=== PATIENT | female | born 1955 | race Asian ===

== ENCOUNTER 2017-09-10 02:08 | Emergency (ER) | payer BC, OTHER ==
--- NOTE | 2017-09-10 02:34 | ER Document Report ---
ED General - General Stated Complaint: POSSIBLE OVERDOSE Time Seen by Provider: 09/10/17 02:13 Notes: Patient is a 62-year-old female presents with some altered mental status. Hospice earlier today she did have a headache. Headache heard 4 hours ago. Patient is a strong psychiatric history. Says that the patient is always hearing voices and is followed by psych. The gave her Tylenol for the headache. Later on the patient started become altered and confused. Paramedics picked her up she admits to the paramedics that she took 6 Seroquel. She denies any focal weakness or numbness. He denies being suicidal but says she is single hearing voices. No recent fevers. No vomiting. No other complaints at this time. TRAVEL OUTSIDE OF THE [place] IN LAST 30 DAYS: No - Related Data Allergies/Adverse Reactions: No Known Allergies Allergy (Verified 09/10/17 03:14) Past Medical History - Social History Smoking Status: Unknown if Ever Smoked Frequency of alcohol use: None Drug Abuse: None Family History: Reviewed & Not Pertinent Review of Systems - Review of Systems Notes: My Normal Review Basic REVIEW OF SYSTEMS: CONSTITUTIONAL : Denies fever, chills, or sweats. Denies recent illness. EENT: Denies eye, ear, throat, or mouth pain or symptoms. Denies nasal or sinus congestion. RESPIRATORY: Denies cough, cold, or chest congestion. Denies shortness of breath, difficulty breathing, or wheezing. GASTROINTESTINAL: Denies abdominal pain. Denies nausea, vomiting, or diarrhea. Denies constipation. Last BM: GENITOURINARY: Denies difficulty urinating, painful urination, burning, frequency, or blood in urine. MUSCULOSKELETAL: Denies neck or back pain or joint pain or swelling. SKIN: Denies rash or skin lesions. NEUROLOGICAL: Some confusion. Denies headache. Denies weakness or paralysis or loss of use of either side. Denies problems with gait or speech. Denies sensory or motor loss. PSYCHIATRIC: Hallucinations. ALL OTHER SYSTEMS REVIEWED AND NEGATIVE. Physical Exam - Vital signs Vitals: Resp Pulse Ox 13 99 09/10/17 02:20 09/10/17 02:20 - Notes Notes: General Appearance: Well nourished, alert, cooperative, no acute distress, no obvious discomfort. Vitals: reviewed, See vital signs table. Head: no swelling or tenderness to the head Eyes: PERRL, EOMI, Conjuctiva clear Mouth: No decreasd moisture Neck: Supple, no neck tenderness Lungs: No wheezing, No rales, No rhonci, No accessory muscle use, good air exchange bilaterally. Heart: Normal rate, Regular rythm, No murmur, no rub Abdomen: Normal BS, soft, No rigidity, No abdominal tenderness, No guarding, no rebound, no abdominal masses, no organomegaly Extremities: strength 5/5 in all extremities, good pulses in all extremities, no swelling or tenderness in the extremities, no edema. Skin: warm, dry, appropriate color, no rash Neuro: Alert speech. Patient is awake and alert. She is able move all extremities without difficulty. Cranial nerves II through XII are intact with exception of her stuttered speech. Course - Re-evaluation Re-evalutation: 09/10/17 04:13 Since speech is now clear. She looks and feels much improved. She still a bit tachycardic which is not surprising in conjunction with her overdose. I did talk about placing an IV and give her IV fluids however the patient does not want IV and the feels that she will be fine just taking in oral fluids. Patient does agree to drink water and is currently drinking water without difficulty. 09/10/17 05:37 Patient appears to be back to her baseline. She is doing well. Her heart rate has normalized. We will watch her to 8 AM. This will give for 12 hours of observation here. She continues to be asymptomatic and looking well then I feel she is safe to be discharged home. I did talk to the about potential psychiatric evaluation here. The seems to have very good satellite dish installer on his 's underlying psychiatric illness. He says she has chronic hallucinations and hearing of voices. He says that she is undergone many different medical therapies as well as inpatient care. He says it does not really seem to have much effect on her hallucinations. He says that he feels that the outpatient psychiatric care they have is appropriate and he would follow-up with the psychiatrist. I feel this is a good plan. At 8 AM this patient continues to be doing well without any symptoms of her Seroquel overdose (such as vomiting, seizures, recurrent tachycardia, slurred speech) she will be discharged home. Dictation of this chart was performed using voice recognition software; therefore, there may be some unintended grammatical errors. - Vital Signs Vital signs: Temp Pulse Resp BP Pulse Ox 13 112/82 96 09/10/17 02:20 09/10/17 04:01 09/10/17 04:01 - Laboratory Result Diagrams: 09/10/17 03:05 09/10/17 03:05 Laboratory results interpreted by me: 09/10/17 09/10/17 09/10/17 03:05 03:12 04:41 BUN 26 H Est GFR ( Amer) 58 L Est GFR (Non-Af Amer) 48 L Glucose 425 H* POC Glucose 355 H 338 H Alkaline Phosphatase 143 H Salicylates < 1.0 L - EKG Interpretation by Me Additional EKG results interpreted by me: 09/10/17 03:03 EKG is reviewed and interpreted by me. EKG shows sinus tachycardia with rate of [address] segment elevation or depression. No ischemic T-wave inversions. FL interval, QRS duration, QTc intervals are within normal range. No old EKG available for comparison. Discharge - Discharge Clinical Impression: Hallucinations, seroquel overdose Additional Instructions: Please follow up with your psychiatrist in 1-2 days for reevaluation. Please return to the ER immediately if you develop worsening hallucinations, severe headache, vomiting, seizure activity, suicidal thoughts, or if you feel that you are worsening. Referrals: JESUS ALMONTE PA-C [Primary Care Provider] - Follow up tomorrow
[2017-09-10 03:14] LABS: ABSOLUTE EOSINOPHILS # (AUTO) 0.1 10^3/uL (0.0-0.6); ABSOLUTE LYMPHOCYTES (AUTO) 1.3 10^3/uL (0.5-4.7); ABSOLUTE MONOCYTES (AUTO) 0.3 10^3/uL (0.1-1.4); BASOPHILS % (AUTO) 0.7 % (0-2); EOSINOPHILS % (AUTO) 1.2 % (0-6); HEMATOCRIT 41.3 % (36.0-47.0); HEMOGLOBIN 13.8 g/dL (12.0-15.5); LYMPHOCYTES % (AUTO) 27.5 % (13-45); MEAN CORPUSCULAR HEMOGLOBIN 31.6 pg (27.0-33.4); MEAN CORPUSCULAR HGB CONC 33.4 g/dL (32.0-36.0); MEAN CORPUSCULAR VOLUME 95 fl (80-97); MONOCYTES % (AUTO) 5.9 % (3-13); PLATELET COUNT 218 10^3/uL (150-450); RED BLOOD COUNT 4.36 10^6/uL (3.72-5.28); RED CELL DISTRIBUTION WIDTH 13.9 % (11.5-14.0); SEGMENTED NEUTROPHILS % (AUTO) 64.7 % (42-78); TOTAL CELLS COUNTED % (AUTO) 100 %; WHITE BLOOD COUNT 4.7 10^3/uL (4.0-10.5)
[2017-09-10 03:42] LABS: ACETAMINOPHEN 28 ug/mL (10-30); ALANINE AMINOTRANSFERASE 34 U/L (9-52); ALBUMIN 4.7 g/dL (3.5-5.0); ALKALINE PHOSPHATASE 143 U/L (38-126); ANION GAP 16 (5-19); ASPARTATE AMINO TRANSFERASE 19 U/L (14-36); BILIRUBIN,DIRECT 0.3 mg/dL (0.0-0.4); BILIRUBIN,TOTAL 0.4 mg/dL (0.2-1.3); BLOOD UREA NITROGEN 26 mg/dL (7-20); CALCIUM 9.8 mg/dL (8.4-10.2); CARBON DIOXIDE 24 mmol/L (22-30); CHLORIDE 99 mmol/L (98-107); POTASSIUM 3.7 mmol/L (3.6-5.0); SODIUM 138.8 mmol/L (137-145); TOTAL PROTEIN 7.5 g/dL (6.3-8.2)
[2017-09-10 03:43] LABS: ALCOHOL < 10 mg/dL (NONE DETECTED); SALICYLATE < 1.0 mg/dL (2.0-20.0)
[2017-09-10] MEDS ORDERED: INSULIN REG, HUMAN 100 UNIT/ML 3 ML VIAL (PYX) SUBCUT ONE (03:48)
[2017-09-10 03:56] LABS: GLUCOSE 425 mg/dL (75-110)
--- NOTE | 2017-09-10 04:26 | RADIOLOGY REPORT (SQ) ---
EXAM DESCRIPTION: CT HEAD WITHOUT CLINICAL HISTORY: 62 years Female, headache COMPARISON: None. TECHNIQUE: No contrast. This exam was performed according to our departmental dose-optimization program, which includes automated exposure control, adjustment of the mA and/or kV according to patient size and/or use of iterative reconstruction technique. FINDINGS: Mild cerebral volume loss. 0.6 cm lacunar infarct of the left claustrum. No hemorrhage. No mass, mass effect, or midline shift. Extra-axial structures appear otherwise grossly intact. IMPRESSION: No acute findings.
--- NOTE | 2017-09-10 09:39 | EKG REPORT ---
SEVERITY:- OTHERWISE NORMAL ECG - SINUS TACHYCARDIA : Confirmed by: Mayi Melendez 10-Sep-2017 09:38:18
[2017-09-10 10:15] VITALS: BP 132/96
== END 2017-09-10 10:05 | disposition home or self-care (01) ==
LOC: ER 02:08
DX: R51 Headache (principal); T43.591A Poisoning by other antipsychotics and neuroleptics, accidental (unintentional), initial encounter; R44.0 Auditory hallucinations; R41.82 Altered mental status, unspecified
CPT/HCPCS: 93005; 99285; 36415; 82962; 80307 ×3; 85025; 80053; 70450; 93010; J1815

== ENCOUNTER → 2019-03-18 | Emergency (ER) | payer OTHER ==
[~2019-03-18] MED LIST: INSULIN GLARGINE,HUM.REC.ANLOG 1,000 UNIT/10 ML VIAL SUBCUT SCH; INSULIN REG, HUMAN 100 UNIT/ML 3 ML VIAL (PYX) IV ONE; INSULIN REG, HUMAN 100 UNIT/ML 3 ML VIAL (PYX) SUBCUT ONE; METOPROLOL TARTRATE 50 MG TABLET PO ONE; METOPROLOL TARTRATE PF/INJ 5 MG/5 ML SDV IV ONE; NORMAL SALINE 1000 ML 1,000 ML IV ONE
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
[2019-03-18 01:20] LABS: ABSOLUTE EOSINOPHILS # (AUTO) 0.1 10^3/uL (0.0-0.6); ABSOLUTE LYMPHOCYTES (AUTO) 1.3 10^3/uL (0.5-4.7); ABSOLUTE MONOCYTES (AUTO) 0.5 10^3/uL (0.1-1.4); ABSOLUTE NEUT (AUTO) 4.6 10^3/uL (1.7-8.2); BASOPHILS % (AUTO) 0.5 % (0-2); EOSINOPHILS % (AUTO) 0.8 % (0-6); HEMATOCRIT 43.1 % (36.0-47.0); HEMOGLOBIN 14.3 g/dL (12.0-15.5); LYMPHOCYTES % (AUTO) 20.1 % (13-45); MEAN CORPUSCULAR HEMOGLOBIN 30.3 pg (27.0-33.4); MEAN CORPUSCULAR HGB CONC 33.2 g/dL (32.0-36.0); MEAN CORPUSCULAR VOLUME 91 fl (80-97); MONOCYTES % (AUTO) 7.4 % (3-13); PLATELET COUNT 234 10^3/uL (150-450); RED BLOOD COUNT 4.73 10^6/uL (3.72-5.28); RED CELL DISTRIBUTION WIDTH 14.5 % (11.5-14.0); SEGMENTED NEUTROPHILS % (AUTO) 71.2 % (42-78); TOTAL CELLS COUNTED % (AUTO) 100 %; WHITE BLOOD COUNT 6.5 10^3/uL (4.0-10.5)
[2019-03-18 01:23] LABS: VENOUS BLOOD BASE EXCESS -0.1 mmol/L; VENOUS BLOOD HCO3 24.2 mmol/L (20-32); VENOUS BLOOD PCO2 38.5 mmHg (35-63); VENOUS BLOOD PH 7.42 (7.30-7.42)
[2019-03-18 01:39] LABS: ACETAMINOPHEN < 10 ug/mL (10-30); ALBUMIN 4.6 g/dL (3.5-5.0); ALCOHOL < 10 mg/dL (NONE DETECTED); ALKALINE PHOSPHATASE 180 U/L (38-126); ANION GAP 15 (5-19); ASPARTATE AMINO TRANSFERASE 29 U/L (14-36); BILIRUBIN,DIRECT 0.4 mg/dL (0.0-0.4); BILIRUBIN,TOTAL 0.8 mg/dL (0.2-1.3); BLOOD UREA NITROGEN 22 mg/dL (7-20); CALCIUM 9.4 mg/dL (8.4-10.2); CARBON DIOXIDE 23 mmol/L (22-30); CHLORIDE 97 mmol/L (98-107); GLUCOSE 345 mg/dL (75-110); POTASSIUM 3.9 mmol/L (3.6-5.0); SALICYLATE < 1.0 mg/dL (2.0-20.0)
[2019-03-18 01:47] LABS: APPEARANCE,URINE CLEAR; BILIRUBIN,URINE NEGATIVE (NEGATIVE); COLOR,URINE COLORLESS; GLUCOSE, URINE >=500 mg/dL (NEGATIVE); KETONES,URINE NEGATIVE (NEGATIVE); LEUKOCYTE ESTERASE,URINE NEGATIVE (NEGATIVE); NITRITE,URINE NEGATIVE (NEGATIVE); PROTEIN,URINE 30 mg/dL (NEGATIVE); URINE SPECIFIC GRAVITY 1.009; UROBILINOGEN,URINE NEGATIVE mg/dL (<2.0)
[2019-03-18 02:04] LABS: URINE AMPHETAMINES SCREEN NEGATIVE; URINE BARBITURATES SCREEN NEGATIVE; URINE BENZODIAZEPINES SCREEN NEGATIVE; URINE COCAINE SCREEN NEGATIVE; URINE MARIJUANA (THC) SCREEN NEGATIVE; URINE METHADONE SCREEN NEGATIVE; URINE PHENCYCLIDINE SCREEN NEGATIVE
--- NOTE | 2019-03-18 04:39 | RADIOLOGY REPORT (SQ) ---
Clinical History : ams , Exam : CT Head without contrast 03/18/2019 12:37 AM CDT Comparisons : CT head without contrast September 10, 2017. Technique : Volumetric CT acquisition was performed through the brain. Images in the axial, coronal, and sagittal planes were presented for interpretation. This exam was performed according to our departmental dose-optimization program, which includes automated exposure control, adjustment of the mA and/or kV according to patient size and/or use of iterative reconstruction technique. Radiation dose : [id number]-954.09 Findings: The soft tissue structures of the face, scalp, and orbits are normal. The globes remain intact. The visualized portions of the paranasal sinuses and mastoid air-cells are clear. The calvarium remains intact . There is no acute intracranial hemorrhage, midline shift, or mass effect. There are mild periventricular and subcortical white matter changes throughout the bilateral cerebral hemispheres. The ventricles are normal in size and the posterior fossa structures are normal in appearance. Limited evaluation of the vasculature demonstrates no gross abnormalities. There is no CT evidence of acute infarction. Impression: 1. No acute intracranial process. 2. Stable small vessel ischemic changes.
--- NOTE | 2019-03-18 09:04 | EKG REPORT ---
SEVERITY:- BORDERLINE ECG - SINUS RHYTHM BORDERLINE PROLONGED QT INTERVAL : Confirmed by: Yocasta Renteria MD 18-Mar-2019 09:03:36
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
[2019-03-18] MEDS: METFORMIN HCL 500 MG TABLET PO SCH ×2 (12:11→17:20)
[2019-03-19] MEDS: METFORMIN HCL 500 MG TABLET PO SCH ×2 (09:53→17:32)
--- NOTE | 2019-03-19 10:04 | ER Document Report ---
Doctor's Note Notes: 03/19/19 10:04 63-year-old female with history of bipolar and schizophrenia who is been noncompliant with medications who is been accepted at [facility] and is awaiting transport. Vital signs stable. Accu-Chek is elevated. Patient was not placed on a diabetic diet despite the metformin being started yesterday. We will provide a liter of fluid with q. one hour Accu-Cheks. 03/19/19 11:34 Blood sugar is elevated. It appears that the patient also takes insulin. Pharmacy is attempting to do a medication reconciliation. Patient has been accepted at [facility] but the patient's blood sugar has increased. We will provide insulin, 7 units, IV of regular insulin, attempt to find the patient's insulin dose regimen, order nightly hourly Accu-Cheks, another liter of fluids, venous blood gas, and chemistry. 03/19/19 11:57 We have called [facility] to confirm that the patient is supposed to take 52 units of subcu Lantus at bedtime. I have added this to the patient's medication regimen. 03/19/19 13:04 Repeat Accu-Chek is 280. Awaiting chemistry. 03/19/19 14:41 Patient's Accu-Chek as recorded. Blood sugars as recorded. Venous blood gas and chemistry as recorded. They are not able to transport the patient to or tomorrow at this time. I have ordered a nighttime subQ insulin dose as given to us from the med reconciliation.
--- NOTE | 2019-03-19 11:13 | PSYCHOLOGICAL NOTE ---
Psych Note - Psych Note Date seen by psych provider: 03/18/19 Time seen by psych provider: 07:45 Psych Note: Reason for Consult: IVC 63-year-old female with history of bipolar, schizophrenia, type 2 diabetes presents via EMS from home with IVC paperwork. Patient identifies that she gets medication from [facility] and has a diagnosis of diabetes. It is noted the patient attempts to identify medications not by name but color and size of the pill. Patient's speech becomes more unintelligible. Patient quickly decompensates into mumbling and can be heard randomly yelling out throughout the day. When asked who the patient is yelling for she reports that her daughter is behind her ("I can hear her") and she is calling her. Clinician notes there is no one in the room with the patient. Clinician spoke with patient's . He reports the patient started having psychological issues in 1998. She has been to [facility] times the last time being in 2007. He reports that she has a diagnosis of bipolar" is highly delusional." He states that she has been on everything but lithium and historically nothing has really worked. He reports that she was on Prolixin once and worked well however had to stop because side effects were so intense. He disclosed the patient stopped taking her Latuda approximately 4 months ago. He denies the patient has a baseline of orientation to self only stating that she can normally answer who she is, where she is, and what is going on; however, she sometimes has difficulty with time only because they do not own a TV or have any set schedule since [facility] so pay little attention to days a week. He continued to disclose that patient's delusions are ongoing however her hallucinations do stop when medicated. Bipolar I disorder with psychotic features per history provided by patient's Impression\\plan: Patient is recommended to continue under IVC. Patient demonstrates auditory hallucinations with disorganized thought processes. Patient has been off medications for approximately 4 months. Patient was accepted to [facility] for transportation tomorrow. Dr. Rodriguez was consulted to care management of this patient; attending physicians in agreement with recommendations disposition.
[2019-03-19 13:33] LABS: ANION GAP 15 (5-19); BLOOD UREA NITROGEN 18 mg/dL (7-20); CALCIUM 8.9 mg/dL (8.4-10.2); CARBON DIOXIDE 20 mmol/L (22-30); CHLORIDE 106 mmol/L (98-107); GLUCOSE 314 mg/dL (75-110); POTASSIUM 3.4 mmol/L (3.6-5.0)
--- NOTE | 2019-03-19 13:51 | PSYCHOLOGICAL NOTE ---
Psych Note - Psych Note Date seen by psych provider: 03/19/19 Psych Note: Reason for Consult: IVC 63-year-old female with history of bipolar, schizophrenia, type 2 diabetes presents via EMS from home with IVC paperwork. Clinician notes [facility] arrived this morning for patient's transport; however, patient's blood sugar was elevated and needed to be medically addressed. Unfortunately, at this time the [facility] [employer] [facility] department is unable to assist with transportation since patient is receiving medical assistance. Patient was expected to be cleared this afternoon but the [facility] department is unable to transport this afternoon. They are able to transport patient tomorrow morning. [facility] was called and it was confirmed they will hold the bed for patient for transport tomorrow. Bipolar I disorder with psychotic features per history provided by patient's Impression\plan: Patient is recommended to continue under IVC. Patient demonstrates auditory hallucinations with disorganized thought processes. Patient has been off medications for approximately 4 months. Patient was accepted to [facility] for transportation tomorrow. Dr. Rodriguez was consulted to care management of this patient; attending physicians in agreement with recommendations disposition.
[2019-03-19 22:19] VITALS: BP 145/74
== END | disposition other institution (70) ==
LOC: ER 00:15
DX: E11.65 Type 2 diabetes mellitus with hyperglycemia (principal); R20.9 Unspecified disturbances of skin sensation; F31.9 Bipolar disorder, unspecified; R41.82 Altered mental status, unspecified; I10 Essential (primary) hypertension; Z91.14 Patient's other noncompliance with medication regimen; S00.81XA Abrasion of other part of head, initial encounter; X58.XXXA Exposure to other specified factors, initial encounter; Z79.899 Other long term (current) drug therapy; Z79.84 Long term (current) use of oral hypoglycemic drugs
CPT/HCPCS: 93005; 36415; 82962; 80307 ×4; 85025; 80053; 81001; 84484; 82803; 70450; 93010; J3490; J1815; J7030; 80048

== ENCOUNTER 2019-04-26 01:54 | Emergency (ER) | payer MEDICARE, OTHER ==
[2019-04-26] MEDS ORDERED: NORMAL SALINE 1000 ML 1,000 ML IV ONE ×2 (02:44→04:46)
[2019-04-26] MEDS ORDERED: LORAZEPAM INJ 2 MG/1 ML VIAL IV ONE (02:44)
--- NOTE | 2019-04-26 02:53 | ER Document Report ---
ED General - General Stated Complaint: RAPID BREATHING,DRY MOUTH,FOOT CRAMPS Time Seen by Provider: 04/26/19 02:34 Primary Care Provider: JESUS ALMONTE PA-C [Primary Care Provider] - Follow up as needed Notes: Patient is a 63-year-old female that comes emergency department for chief complaint of leg cramps and hyperventilating. She comes by EMS. Patient states that her leg started cramping badly, states that shortly after this when he was rubbing her legs patient started hyperventilating and she would not stop doing so. He became concerned and called EMS. Patient denies chest pain, dizziness, vomiting, headache, fever/chills. She states her legs do cramp in her mouth feels dry but otherwise she does not have any current symptoms. Past medical history includes hypertension, type 2 diabetes, anxiety/depression. She denies any cardiovascular history. states that she threw away her blood pressure medications (HCTZ and propanlol with propanalol also being for tachycardia per ), because she thought they were "poison". Patient does have a psychiatric history (bipolar and schizophrenia) and she was recently hospitalized at [facility] per . However he denies any altered mental status or abnormal behavior otherwise. TRAVEL OUTSIDE OF THE [place] IN LAST 30 DAYS: No - Related Data Allergies/Adverse Reactions: No Known Allergies Allergy (Verified 09/10/17 03:14) Past Medical History - General Information source: Patient, Relative - Social History Smoking Status: Never Smoker Drug Abuse: None Lives with: Spouse/Significant other Family History: Reviewed & Not Pertinent - Past Medical History Cardiac Medical History: Reports: Hx Hypertension Endocrine Medical History: Reports: Hx Diabetes Mellitus Type 2 Renal/ Medical History: Denies: Hx Peritoneal Dialysis Psychiatric Medical History: Reports: Hx Bipolar Disorder, Hx Schizophrenia - Immunizations Hx Diphtheria, Pertussis, Tetanus Vaccination: Yes Review of Systems - Review of Systems Constitutional: See HPI EENT: No symptoms reported Cardiovascular: No symptoms reported Respiratory: See HPI Gastrointestinal: No symptoms reported Genitourinary: No symptoms reported Female Genitourinary: No symptoms reported Musculoskeletal: See HPI Skin: No symptoms reported Hematologic/Lymphatic: No symptoms reported Neurological/Psychological: No symptoms reported Physical Exam - Vital signs Vitals: Resp BP 29 H 211/117 H 04/26/19 01:59 04/26/19 01:59 - Notes Notes: GENERAL: Patient is slightly anxious in appearance, very fidgety, however she does not appear to be in pain or distress HEAD: Normocephalic, atraumatic. EYES: Pupils equal, round, and reactive to light. Extraocular movements intact. ENT: Oral mucosa dry, tongue midline. Oropharynx unremarkable. Airway patent. NECK: Full range of motion. Supple. Trachea midline. LUNGS: Clear to auscultation bilaterally, no wheezes, rales, or rhonchi. No respiratory distress. Borderline tachypnea. HEART: Tachycardia, normal rhythm, no murmur ABDOMEN: Soft, non-tender. Non-distended. Bowel sounds present in all 4 quad rants. GENITOURINARY: Deferred EXTREMITIES: Moves all 4 extremities spontaneously. No edema, normal radial and dorsalis pedis pulses bilaterally. No cyanosis. BACK: no cervical, thoracic, lumbar midline tenderness. No saddle anesthesia, normal distal neurovascular exam. Moves all extremities in full range of motion. NEUROLOGICAL: Alert and oriented x3. Normal speech. Cranial nerves II through XII grossly intact. PSYCH: Anxious, asks a lot of questions, however she does make eye contact, it does not appear to be responding to internal stimuli, follows directions without any difficulty SKIN: Warm, dry, normal turgor. No rashes or lesions noted. Course - Re-evaluation Re-evalutation: Patient keeps asking "am I okay", otherwise she is cooperative and generally well-appearing. She does have borderline tachycardia, occasionally during conversation she will have tachypnea, her lungs are clear, her abdomen is soft and benign, her exam is otherwise unremarkable. EKG sinus tachycardia at a rate of 118, no T wave inversions or ST segment changes in consecutive leads. QTC of 345, borderline flattened T waves anteriorly and laterally but this is not noted to be new. Chest x-ray is unremarkable. CBC is unremarkable. Chemistry shows elevated creatinine compared to prior, patient being given IV fluids. Urinalysis indicates infection, culture placed, starting antibiotics. On reevaluation patient is noted to be tachycardic and hypertensive still. She is asking to be given doses of her blood pressure medications, she was given blows propranolol and hydrochlorothiazide, I suspect that she might have unopposed beta-blockade, patient is not complaining of shortness of breath or chest pain, she does not have lower extremity swelling, and no recent travel or surgery, no history of DVT. Current heart rate is 128. 04/26/19 06:00 Patient reevaluated, at bedside heart rate is 106, blood pressure is downtrending (160s systolic now), patient does not have tachypnea, she states that she now feels perfectly fine, she is not cramping in her legs, she does not have a sensation like something is wrong. She asks if she can go home. Based on her presentation, improvement with symptoms, overall evaluation I do have a low suspicion of pulmonary embolism or ACS. I did discuss with Dr. Schneider. Patient will complete her Rocephin for the UTI, she will be taking Amoxil home, requests HCTZ prescription, he states she has her propanolol at home that she can take. She will be provided with this. Discussed follow-up and return precautions. They state understanding and agreement with plan. - Vital Signs Vital signs: Temp Pulse Resp BP Pulse Ox 98.2 F 23 H 161/86 H 96 04/26/19 06:01 04/26/19 06:01 04/26/19 06:01 04/26/19 06:01 - Laboratory Result Diagrams: 04/26/19 03:17 04/26/19 03:17 Laboratory results interpreted by me: 04/26/19 04/26/19 04/26/19 03:01 03:17 03:17 RDW 14.2 H BUN 23 H Creatinine 1.71 H Est GFR ( Amer) 36 L Est GFR (MDRD) Non-Af 30 L Glucose 303 H Alkaline Phosphatase 238 H Urine Glucose (UA) >=500 H Urine Blood SMALL H Urine Nitrite POSITIVE H Ur Leukocyte Esterase LARGE H Salicylates < 1.0 L Acetaminophen < 10 L Discharge - Discharge Clinical Impression: Non compliance w medication regimen, Acute renal insufficiency, Hyperventilating, Essential hypertension Urinary tract infection Qualifiers: Urinary tract infection type: site unspecified Hematuria presence: without hematuria Qualified Code(s): N39.0 - Urinary tract infection, site not specified Condition: Stable Disposition: HOME, SELF-CARE Additional Instructions: Take the Keflex antibiotic as prescribed for your urinary tract infection. Follow close with your provider to have your kidney functioning and blood pressure rechecked. You have been restarted on hydrochlorthiazide for your blood pressure, please take this along with your prescribed propranolol and remaining medications. Return to the emergency department for any concerning symptoms including fever, vomiting, chest pain, shortness of breath, or if something is not right. Prescriptions: Hydrochlorothiazide [Hydrodiuril 25 mg Tablet] 25 mg PO QAM #30 tablet Cephalexin Monohydrate [Keflex 500 mg Capsule] 500 mg PO BID 7 Days #14 capsule Referrals: JESUS ALMONTE PA-C [Primary Care Provider] - Follow up as needed
[2019-04-26 03:29] LABS: ABSOLUTE EOSINOPHILS # (AUTO) 0.1 10^3/uL (0.0-0.6); ABSOLUTE LYMPHOCYTES (AUTO) 1.4 10^3/uL (0.5-4.7); ABSOLUTE MONOCYTES (AUTO) 0.4 10^3/uL (0.1-1.4); ABSOLUTE NEUT (AUTO) 4.9 10^3/uL (1.7-8.2); BASOPHILS % (AUTO) 0.7 % (0-2); EOSINOPHILS % (AUTO) 1.4 % (0-6); HEMATOCRIT 40.9 % (36.0-47.0); HEMOGLOBIN 13.6 g/dL (12.0-15.5); LYMPHOCYTES % (AUTO) 21.2 % (13-45); MEAN CORPUSCULAR HEMOGLOBIN 30.7 pg (27.0-33.4); MEAN CORPUSCULAR HGB CONC 33.3 g/dL (32.0-36.0); MEAN CORPUSCULAR VOLUME 92 fl (80-97); MONOCYTES % (AUTO) 5.6 % (3-13); PLATELET COUNT 269 10^3/uL (150-450); RED BLOOD COUNT 4.42 10^6/uL (3.72-5.28); RED CELL DISTRIBUTION WIDTH 14.2 % (11.5-14.0); SEGMENTED NEUTROPHILS % (AUTO) 71.1 % (42-78); TOTAL CELLS COUNTED % (AUTO) 100 %; WHITE BLOOD COUNT 6.8 10^3/uL (4.0-10.5)
[2019-04-26 03:36] LABS: APPEARANCE,URINE SLIGHTLY-CLOUDY; BILIRUBIN,URINE NEGATIVE (NEGATIVE); COLOR,URINE STRAW; GLUCOSE, URINE >=500 mg/dL (NEGATIVE); KETONES,URINE NEGATIVE (NEGATIVE); LEUKOCYTE ESTERASE,URINE LARGE (NEGATIVE); NITRITE,URINE POSITIVE (NEGATIVE); PROTEIN,URINE NEGATIVE (NEGATIVE); URINE SPECIFIC GRAVITY 1.007; UROBILINOGEN,URINE NEGATIVE mg/dL (<2.0)
[2019-04-26 03:48] LABS: URINE AMPHETAMINES SCREEN NEGATIVE; URINE BARBITURATES SCREEN NEGATIVE; URINE BENZODIAZEPINES SCREEN NEGATIVE; URINE COCAINE SCREEN NEGATIVE; URINE MARIJUANA (THC) SCREEN NEGATIVE; URINE METHADONE SCREEN NEGATIVE; URINE PHENCYCLIDINE SCREEN NEGATIVE
[2019-04-26 03:57] LABS: ALBUMIN 4.3 g/dL (3.5-5.0); ALKALINE PHOSPHATASE 238 U/L (38-126); ANION GAP 13 (5-19); ASPARTATE AMINO TRANSFERASE 35 U/L (14-36); BILIRUBIN,DIRECT 0.1 mg/dL (0.0-0.4); BILIRUBIN,TOTAL 0.3 mg/dL (0.2-1.3); BLOOD UREA NITROGEN 23 mg/dL (7-20); CALCIUM 9.7 mg/dL (8.4-10.2); CARBON DIOXIDE 24 mmol/L (22-30); CHLORIDE 102 mmol/L (98-107); GLUCOSE 303 mg/dL (75-110); POTASSIUM 3.7 mmol/L (3.6-5.0); TOTAL PROTEIN 7.9 g/dL (6.3-8.2)
[2019-04-26 04:01] LABS: ACETAMINOPHEN < 10 ug/mL (10-30); ALCOHOL < 10 mg/dL (NONE DETECTED); SALICYLATE < 1.0 mg/dL (2.0-20.0)
--- NOTE | 2019-04-26 04:05 | RADIOLOGY REPORT (SQ) ---
EXAM DESCRIPTION: XR CHEST 1 VIEW COMPLETED DATE/TME: 04/26/2019 02:45 CLINICAL HISTORY: 63 years, Female, shortness of breath COMPARISON: None. NUMBER OF VIEWS: One TECHNIQUE: AP view of the chest LIMITATIONS: None. FINDINGS: The lungs are clear. The heart is normal in size. There is no pneumothorax or pleural effusion. There is no acute fracture. IMPRESSION: No acute cardiopulmonary abnormality copyright 2010 [employer]- All Rights Reserved
[2019-04-26] MEDS ORDERED: CEFTRIAXONE 1 GM/D5W RTU 1 GM/50 ML RTUPB IV ONE (04:46)
[2019-04-26] MEDS ORDERED: HYDROCHLOROTHIAZIDE 25 MG TABLET PO ONE (04:50)
[2019-04-26] MEDS ORDERED: PROPRANOLOL HCL 10 MG TABLET PO ONE (04:50)
[2019-04-26 06:10] VITALS: BP 161/86
--- NOTE | 2019-04-26 07:25 | EKG REPORT ---
SEVERITY:- ABNORMAL ECG - SINUS TACHYCARDIA LEFT AXIS DEVIATION LOW VOLTAGE IN FRONTAL LEADS CONSIDER POSTERIOR INFARCT NONSPECIFIC T ABNORMALITIES, DIFFUSE LEADS : Confirmed by: Mayi Melendez 26-Apr-2019 07:25:02
== END 2019-04-26 06:48 | disposition home or self-care (01) ==
LOC: ER 01:54
DX: R06.4 Hyperventilation (principal); N28.9 Disorder of kidney and ureter, unspecified; N39.0 Urinary tract infection, site not specified; E11.9 Type 2 diabetes mellitus without complications; R25.2 Cramp and spasm; I10 Essential (primary) hypertension; Z91.14 Patient's other noncompliance with medication regimen
CPT/HCPCS: 93005; 99284; 96361; 96375; 96365; 36415; 80307 ×4; 83735; 85025; 80053; 81001; 84484; 71045; 93010; J2060; A9270; J7030; J0696; J3490

== ENCOUNTER 2019-09-21 10:28 | Emergency (ER) | payer MEDICARE, OTHER ==
[2019-09-21] MEDS ORDERED: NORMAL SALINE 1000 ML 2,000 ML IV ONE (11:11)
--- NOTE | 2019-09-21 11:14 | ER Document Report ---
ED Medical Screen (RME) - General Chief Complaint: High Blood Sugar Stated Complaint: BLOOD SUGAR PROBLEMS Time Seen by Provider: 09/21/19 11:07 Primary Care Provider: JESUS ALMONTE PA-C [Primary Care Provider] - Follow up as needed Notes: Patient is a 64-year-old female who presents to the emergency department with a chief complaint of high blood sugars. Patient has a history of mental health issues, and she is not taking her medications. Patient states, "my is trying to poison me." reports that the patient had high blood sugars at home. She is not taking her insulin as prescribed. Exam: Glucometer high on Accu-Chek machine. Tachycardic. I have greeted and performed a rapid initial assessment of this patient. A comprehensive ED assessment and evaluation of the patient, analysis of test results and completion of medical decision making process will be conducted by an additional ED providers. TRAVEL OUTSIDE OF THE [place] IN LAST 30 DAYS: No - Related Data Allergies/Adverse Reactions: No Known Allergies Allergy (Verified 09/10/17 03:14) Past Medical History - Past Medical History Cardiac Medical History: Reports: Hx Hypertension Endocrine Medical History: Reports: Hx Diabetes Mellitus Type 2 Renal/ Medical History: Denies: Hx Peritoneal Dialysis Psychiatric Medical History: Reports: Hx Bipolar Disorder, Hx Schizophrenia - Immunizations Hx Diphtheria, Pertussis, Tetanus Vaccination: Yes Physical Exam - Vital signs Vitals: Temp Pulse Resp BP Pulse Ox 98.4 F 110 H 18 167/97 H 97 09/21/19 10:46 09/21/19 10:46 09/21/19 10:46 09/21/19 10:46 09/21/19 10:46 Course - Vital Signs Vital signs: Temp Pulse Resp BP Pulse Ox 98.4 F 110 H 18 167/97 H 97 09/21/19 10:46 09/21/19 10:46 09/21/19 10:46 09/21/19 10:46 09/21/19 10:46 Doctor's Discharge - Discharge Referrals: JESUS ALMONTE PA-C [Primary Care Provider] - Follow up as needed
[2019-09-21 12:07] LABS: ABSOLUTE EOSINOPHILS # (AUTO) 0.1 10^3/uL (0.0-0.6); ABSOLUTE LYMPHOCYTES (AUTO) 1.5 10^3/uL (0.5-4.7); ABSOLUTE MONOCYTES (AUTO) 0.4 10^3/uL (0.1-1.4); ABSOLUTE NEUT (AUTO) 4.3 10^3/uL (1.7-8.2); BASOPHILS % (AUTO) 0.6 % (0-2); EOSINOPHILS % (AUTO) 1.6 % (0-6); HEMOGLOBIN 14.3 g/dL (12.0-15.5); LYMPHOCYTES % (AUTO) 23.8 % (13-45); MEAN CORPUSCULAR HEMOGLOBIN 31.8 pg (27.0-33.4); MEAN CORPUSCULAR HGB CONC 33.3 g/dL (32.0-36.0); MEAN CORPUSCULAR VOLUME 95 fl (80-97); MONOCYTES % (AUTO) 6.3 % (3-13); PLATELET COUNT 226 10^3/uL (150-450); RED BLOOD COUNT 4.51 10^6/uL (3.72-5.28); RED CELL DISTRIBUTION WIDTH 13.1 % (11.5-14.0); SEGMENTED NEUTROPHILS % (AUTO) 67.7 % (42-78); TOTAL CELLS COUNTED % (AUTO) 100 %; WHITE BLOOD COUNT 6.3 10^3/uL (4.0-10.5)
[2019-09-21 12:30] LABS: ALBUMIN 4.6 g/dL (3.5-5.0); ALKALINE PHOSPHATASE 261 U/L (38-126); ANION GAP 19 (5-19); ASPARTATE AMINO TRANSFERASE 25 U/L (14-36); BILIRUBIN,DIRECT 0.5 mg/dL (0.0-0.4); BILIRUBIN,TOTAL 0.6 mg/dL (0.2-1.3); BLOOD UREA NITROGEN 25 mg/dL (7-20); CALCIUM 9.9 mg/dL (8.4-10.2); CARBON DIOXIDE 21 mmol/L (22-30); CHLORIDE 94 mmol/L (98-107); POTASSIUM 4.5 mmol/L (3.6-5.0); TOTAL PROTEIN 8.2 g/dL (6.3-8.2)
[2019-09-21 12:39] LABS: GLUCOSE 681 mg/dL (75-110)
[2019-09-21] MEDS ORDERED: INSULIN REG, HUMAN 100 UNIT/ML 3 ML VIAL (PYX) IV ONE (12:48)
[2019-09-21] MEDS ORDERED: INSULIN NPH (ISOPHANE), HUMAN 100 UNIT/ML 3 ML SUBCUT ONE (12:58)
[2019-09-21 13:14] LABS: APPEARANCE,URINE CLEAR; BILIRUBIN,URINE NEGATIVE (NEGATIVE); COLOR,URINE STRAW; GLUCOSE, URINE >=500 mg/dL (NEGATIVE); KETONES,URINE TRACE mg/dL (NEGATIVE); LEUKOCYTE ESTERASE,URINE TRACE (NEGATIVE); NITRITE,URINE NEGATIVE (NEGATIVE); PROTEIN,URINE NEGATIVE (NEGATIVE); URINE SPECIFIC GRAVITY 1.025; UROBILINOGEN,URINE NEGATIVE mg/dL (<2.0)
[2019-09-21 13:15] LABS: ACETAMINOPHEN < 10 ug/mL (10-30); ALCOHOL < 10 mg/dL (NONE DETECTED); SALICYLATE < 1.0 mg/dL (2.0-20.0)
[2019-09-21 13:29] LABS: URINE AMPHETAMINES SCREEN NEGATIVE; URINE BARBITURATES SCREEN NEGATIVE; URINE BENZODIAZEPINES SCREEN NEGATIVE; URINE COCAINE SCREEN NEGATIVE; URINE MARIJUANA (THC) SCREEN NEGATIVE; URINE METHADONE SCREEN NEGATIVE; URINE PHENCYCLIDINE SCREEN NEGATIVE
[2019-09-21 14:12] LABS: VENOUS BLOOD BASE EXCESS -3.4 mmol/L; VENOUS BLOOD PCO2 40.9 mmHg (35-63); VENOUS BLOOD PH 7.35 (7.30-7.42)
--- NOTE | 2019-09-21 14:37 | RADIOLOGY REPORT (SQ) ---
EXAM DESCRIPTION: CT HEAD WITHOUT COMPLETED DATE/TIME: 09/21/2019 2:19 pm REASON FOR STUDY: ams COMPARISON: 03/18/2019. TECHNIQUE: Axial images acquired through the brain without intravenous contrast. Images reviewed wi th bone, brain and subdural windows. Additional sagittal and coronal reconstructions were generated. Images stored on PACS. All CT scanners at this facility use dose modulation, iterative reconstruction, and/or weight based d osing when appropriate to reduce radiation dose to as low as reasonably achievable (ALARA). [facility]: Dose Right [facility]: CareDose [facility]: Dose Right [facility]: Teradose 4D [facility]: My Perfect Gig RADIATION DOSE: CT Rad equipment meets quality standard of care and radiation dose reduction techniq ues were employed. CTDIvol: 53.2 mGy. DLP: 937 mGy-cm. mGy. LIMITATIONS: None. FINDINGS: VENTRICLES: Prominent. CEREBRUM: No masses. No hemorrhage. No midline shift. Areas of low density in the white matter mos t likely due to chronic micro-vascular ischemic change. No evidence for acute infarction. CEREBELLUM: No masses. No hemorrhage. No alteration of density. No evidence for acute infarction. EXTRAAXIAL SPACES: Mild age-related involutional change. No fluid collections. No masses. ORBITS AND GLOBE: No intra- or extraconal masses. Normal contour of globe without masses. CALVARIUM: No fracture. PARANASAL SINUSES: No fluid or mucosal thickening. SOFT TISSUES: No mass or hematoma. OTHER: No other significant finding. IMPRESSION: MILD CHRONIC CHANGES OF ATROPHY AND MICROVASCULAR ISCHEMIA. NO ACUTE PROCESS. EVIDENCE OF ACUTE STROKE: NO. TECHNICAL DOCUMENTATION: JOB ID: [id number] Quality ID # [id number]: Final reports with documentation of one or more dose reduction techniques (e.g., Au tomated exposure control, adjustment of the mA and/or kV according to patient size, use of iterative reconstruction technique) 2010 [employer]- All Rights Reserved Reading location - IP/workstation name: [email or web address]
[2019-09-21] MEDS ORDERED: CLONIDINE 0.1 MG/24 HR PATCH.TDWK TD ONE (15:39)
[2019-09-21] MEDS ORDERED: BUSPIRONE HCL 10 MG TABLET PO SCH (15:40)
--- NOTE | 2019-09-21 16:05 | PSYCHOLOGICAL NOTE ---
Psych Note - Psych Note Date seen by psych provider: 09/21/19 Time seen by psych provider: 15:38 Psych Note: Patient is a 64-year-old female who presents to ED via POV with blood sugar concerns. Patient has a mental health diagnosis of Schizophrenia. Patient's reports patient refuses to take insulin to manage her Type 2 diabetes due to beliefs he is attempting to poison her. Patient was seen by [facility] on 03/19/2020 with similar concern. Patient refuses to take her insulin. Patient states the mediation is "poison." Patient requested clinician "check the computer" and verbalized a belief that if she takes "one in the stomach" she would of a heart attack. Patient also spoke of her friend "Hamida" telling her not to take the insulin. The following collateral information was obtained from patient's , who is adamant that patient will not "be his oneill." reported patient has been psychiatrically hospitalized "repeatedly over 20 years." Patient receives medication management from Dr. Rodriguez who expressed concerns that patient may have dementia like processes in the brain. expressed frustration with patient's refusal to take medications. was provided with psychoeducation regarding the patient's ability to decline medications as her own guardian, and the probability of this situation reoccurring. was encouraged to follow up with a neurologist. Head CT was ordered by attending physician. Results of Head CT contained language osuggestive of neurodegenerative processes in the Cerebrum. Medication recommendations per [facility] contracted psychiatrist Dr. Lino MD are as follows: Discontinue Seroquel Discontinue Latuda Add Clonidine 0.1MG, 24HR patch Add Buspar 5MG, twice a day Add Risperidone 0.25MG, PRN-BID Impression/Plan: Patient is recommended for 24 hour petition for evaluation. Medication recommendations have been provided. Patient has a history of medication compliance as a result of her mental health diagnosis of Schizophrenia. Patient will remain in ED overnight for stabilization. Patient will be reassessed tomorrow for possible medication adjustment. Dr. Rodriguez was consulted on the care and management of this patient; attending physician is in agreement with recommendations and disposition.
[2019-09-21] MEDS: RISPERIDONE 0.25 MG TABLET PO PRN (16:29)
[2019-09-21] MEDS: BUSPIRONE HCL 10 MG TABLET PO SCH (16:29)
--- NOTE | 2019-09-21 16:40 | ER Document Report ---
ED General - General Chief Complaint: High Blood Sugar Stated Complaint: BLOOD SUGAR PROBLEMS Time Seen by Provider: 09/21/19 11:07 Primary Care Provider: JESUS ALMONTE PA-C [Primary Care Provider] - Follow up as needed Mode of Arrival: Ambulatory Information source: Patient TRAVEL OUTSIDE OF THE [place] IN LAST 30 DAYS: No - HPI Notes: Patient presents with secondary to high blood sugars. states that patient has a long history of schizophrenia. She states she will often not take her medicines because she feels that she is being poisoned. Patient has not been taking her insulin over the last several days because she states that her has been trying to poison her with it. Patient otherwise has no significant complaints. There has been no nausea vomiting diarrhea. She denies any pain at this time. Patient symptoms have been mild to moderate. They have been constant. Nothing appears make them better or worse. There is obviously no known radiation of these kind of symptoms. - Related Data Allergies/Adverse Reactions: No Known Allergies Allergy (Verified 09/10/17 03:14) Home Medications: insulin Past Medical History - General Information source: Patient - Social History Smoking Status: Never Smoker Frequency of alcohol use: None Drug Abuse: None Family History: Reviewed & Not Pertinent Patient has suicidal ideation: No Patient has homicidal ideation: No - Past Medical History Cardiac Medical History: Reports: Hx Hypertension Endocrine Medical History: Reports: Hx Diabetes Mellitus Type 2 Renal/ Medical History: Denies: Hx Peritoneal Dialysis Psychiatric Medical History: Reports: Hx Bipolar Disorder, Hx Schizophrenia - Immunizations Hx Diphtheria, Pertussis, Tetanus Vaccination: Yes Review of Systems - Review of Systems Constitutional: denies: Chills, Fever Cardiovascular: denies: Chest pain, Palpitations Respiratory: denies: Cough, Short of breath -: Yes All other systems reviewed and negative Physical Exam - Vital signs Vitals: Temp Pulse Resp BP Pulse Ox 98.4 F 110 H 18 167/97 H 97 09/21/19 10:46 09/21/19 10:46 09/21/19 10:46 09/21/19 10:46 09/21/19 10:46 Interpretation: Hypertensive, Tachycardic - General General appearance: Appears well, Alert - HEENT Head: Normocephalic, Atraumatic Eyes: Normal Pupils: PERRL - Respiratory Respiratory status: No respiratory distress Chest status: Nontender Breath sounds: Normal Chest palpation: Normal - Cardiovascular Rhythm: Regular Heart sounds: Normal auscultation Murmur: No - Abdominal Inspection: Normal Distension: No distension Bowel sounds: Normal Tenderness: Nontender Organomegaly: No organomegaly - Back Back: Normal, Nontender - Extremities General upper extremity: Normal inspection, Nontender, Normal color, Normal ROM, Normal temperature General lower extremity: Normal inspection, Nontender, Normal color, Normal ROM, Normal temperature, Normal weight bearing. No: Ro's sign - Neurological Aaliyah Coma Scale Eye Opening: Spontaneous Aaliyah Coma Scale Verbal: Oriented Schroeder Coma Scale Motor: Obeys Commands Schroeder Coma Scale Total: 15 Speech: Normal Motor strength normal: LUE, RUE, LLE, RLE Sensory: Normal - Psychological Associated symptoms: Flat affect, Flight of ideas - Skin Skin Temperature: Warm Skin Moisture: Dry Skin Color: Normal Course - Re-evaluation Re-evalutation: 09/21/19 16:41 Patient presents with elevated blood sugar due to not taking her insulin. She has been placed on IVC and will be assessed by psychiatry in the morning. Patient is been given insulin here and stay started on her regular medications. She is also been given 2 L of fluid. Diet has been ordered for her. She is now medically stable and is awaiting psychiatric evaluation in the a.m. - Vital Signs Vital signs: Temp Pulse Resp BP Pulse Ox 98.4 F 110 H 22 H 154/98 H 100 09/21/19 10:46 09/21/19 10:46 09/21/19 15:01 09/21/19 15:01 09/21/19 15:01 - Laboratory Result Diagrams: 09/21/19 11:45 09/21/19 11:45 Laboratory results interpreted by me: 09/21/19 09/21/19 09/21/19 11:45 11:45 11:45 Sodium 133.5 L Chloride 94 L Carbon Dioxide 21 L BUN 25 H Creatinine 1.38 H Est GFR ( Amer) 46 L Est GFR (MDRD) Non-Af 38 L Glucose 681 H* POC Glucose Direct Bilirubin 0.5 H Alkaline Phosphatase 261 H Urine Glucose (UA) >=500 H Urine Ketones TRACE H Ur Leukocyte Esterase TRACE H Salicylates < 1.0 L Acetaminophen < 10 L 09/21/19 09/21/19 15:04 16:16 Sodium Chloride Carbon Dioxide BUN Creatinine Est GFR ( Amer) Est GFR (MDRD) Non-Af Glucose POC Glucose 272 H 208 H Direct Bilirubin Alkaline Phosphatase Urine Glucose (UA) Urine Ketones Ur Leukocyte Esterase Salicylates Acetaminophen - Diagnostic Test Radiology reviewed: Image reviewed, Reports reviewed - EKG Interpretation by Me EKG shows normal: Sinus rhythm Rate: Tachycardia - 102 Rhythm: NSR [place]/QRS: [facility]/LA[facility] Discharge - Discharge Clinical Impression: Hyperglycemia, Medical non-compliance Schizophrenia Qualifiers: Schizophrenia type: other Qualified Code(s): F20.89 - Other schizophrenia; F20.8 - Other schizophrenia Condition: Stable Disposition: PSYCH HOSP/UNIT Referrals: JESUS ALMONTE PA-C [Primary Care Provider] - Follow up as needed
--- NOTE | 2019-09-21 17:06 | EKG REPORT ---
SEVERITY:- ABNORMAL ECG - SINUS TACHYCARDIA LEFT ANTERIOR FASCICULAR BLOCK LOW VOLTAGE IN FRONTAL LEADS : Confirmed by: Yocasta Renteria MD 21-Sep-2019 17:06:01
[2019-09-21] MEDS ORDERED: INSULIN NPH (ISOPHANE), HUMAN 100 UNIT/ML 3 ML SUBCUT SCH (23:00)
[2019-09-22] MEDS ORDERED: HYDROCHLOROTHIAZIDE 25 MG TABLET PO SCH (08:00)
[2019-09-22] MEDS: BUSPIRONE HCL 10 MG TABLET PO SCH (11:08)
--- NOTE | 2019-09-22 12:04 | PSYCHOLOGICAL NOTE ---
Psych Note - Psych Note Date seen by psych provider: 09/22/19 Time seen by psych provider: 08:30 Psych Note: Reason for Consult: psychosis Check in conducted with patient: Patient is calm and pleasant. She reports she is ready to go home. She then stated; "I am just sitting her listening to the voices...of the people that are stealing my stuff..my pots and pans, my clothes...." Patient confirms she has been taking her medication that the nurses are providing. She states she has no other concerns at this time. Medication recommendations per [facility] contracted psychiatrist Dr. Lino MD are as follows: Continue Clonidine 0.1MG, 24HR patch Continue Buspar 5MG, twice a day Continue Risperidone 0.25MG, PRN-BID Impression/Plan: Patient is recommended for IVC. Patient is currently experiencing both auditory and visual hallucinations. Medication recommendations have been provided. Patient will be re-evaluated. Dr. Rodriguez was consulted on the care and management of this patient; attending physician is in agreement with recommendations and disposition.
[2019-09-22] MEDS: RISPERIDONE 0.25 MG TABLET PO PRN (12:26)
[2019-09-22] MEDS ORDERED: INSULIN REG, HUMAN 100 UNIT/ML 3 ML VIAL (PYX) SUBCUT ONE (13:23)
--- NOTE | 2019-09-22 13:36 | ER Document Report ---
Doctor's Note Notes: 09/22/19 13:32 S: 64-year-old female in the emergency department on IVC since yesterday. She is here because she has been refusing to take her insulin because she thinks that her is poisoning her. She has a history of schizophrenia. On rounding today that she states that she is doing well. She states she did not really like lunch so she is having her daughter go get her a sandwich. She denies any SI, HI, hallucinations O: Constitutional: Alert and oriented in no acute distress Cardiac: Regular rate and rhythm, no murmurs, gallops, or rubs Pulm: Clear to auscultation bilaterally, no wheezes, rhonchi's, rales Abdomen: Soft, nontender, nondistended, obese psych:Good eye contact, cooperative. Denies SI. Denies HI, hallucinations Skin: Good turgor, warm, and dry A/P: Spoke with behavioral health about the patient. She will go to [facility] today for placement. Noted sugar 329 for which 4 units of insulin was given. Intolerant was signed by Dr. Sahupatient will be transferred.
[2019-09-22] MEDS ORDERED: DIPHENHYDRAMINE HCL 25 MG CAPSULE PO ONE (15:02)
[2019-09-22 15:20] VITALS: BP 143/91
== END 2019-09-22 15:22 ==
LOC: ER 10:28
DX: F20.9 Schizophrenia, unspecified (principal); R41.0 Disorientation, unspecified; E11.65 Type 2 diabetes mellitus with hyperglycemia; Z91.14 Patient's other noncompliance with medication regimen; Z79.4 Long term (current) use of insulin; Z79.899 Other long term (current) drug therapy; I10 Essential (primary) hypertension; R00.0 Tachycardia, unspecified
CPT/HCPCS: 93005; 99285; 96360; 96361; 36415; 82962; 80307 ×4; 85025; 80053; 81001; 82803; 70450; 93010; A9270 ×10; J7030; J1815; J3490

== ENCOUNTER 2020-04-20 11:13 | Emergency (ER) | payer MEDICARE, OTHER ==
[2020-04-20] MEDS ORDERED: NORMAL SALINE 1000 ML 1,000 ML IV ONE (11:40)
--- NOTE | 2020-04-20 11:41 | ER Document Report ---
ED Medical Screen (RME) - General Chief Complaint: Wrist Pain Stated Complaint: LEFT WRIST PAIN,SWELLING Time Seen by Provider: 04/20/20 11:24 Primary Care Provider: MARGIE MUNOZ MD [Primary Care Provider] - Follow up as needed Notes: Patient is a 64-year-old female who presents emergency department with a chief complaint of left wrist pain. Patient states that a week ago she fell out of her bed and hit her wrist and her head. Patient is not taking her blood pressure medication. Patient states, "it is poison." Son is at bedside and states that she has stopped taking her medications. Patient has history of doi ng this in the past. Patient was seen at urgent care was referred to the emergency department for further evaluation. Son states that the patient's blood sugar was also elevated this morning. It read high on the glucometer. Patient then seen 30 units of her insulin. Exam: Patient continues to state that her medications are poison. Tenderness noted to left wrist. Blood pressure 183/138 and heart rate 122. I have greeted and performed a rapid initial assessment of this patient. A comprehensive ED assessment and evaluation of the patient, analysis of test results and completion of medical decision making process will be conducted by an additional ED providers. TRAVEL OUTSIDE OF THE [place] IN LAST 30 DAYS: No - Related Data Allergies/Adverse Reactions: No Known Allergies Allergy (Verified 09/10/17 03:14) Home Medications: amiantindine. clonazapam. Dilitiazem. glipizode. ladtuda. Metformin'. Pioglitaxzone. seroquel. synthroid Past Medical History - Social History Chew tobacco use (# tins/day): No Frequency of alcohol use: None Drug Abuse: None - Past Medical History Cardiac Medical History: Reports: Hx Hypertension Endocrine Medical History: Reports: Hx Diabetes Mellitus Type 2 Renal/ Medical History: Denies: Hx Peritoneal Dialysis Psychiatric Medical History: Reports: Hx Bipolar Disorder, Hx Schizophrenia - Immunizations Hx Diphtheria, Pertussis, Tetanus Vaccination: Yes Physical Exam - Vital signs Vitals: Temp Pulse Resp BP Pulse Ox 98.2 F 122 H 20 183/138 H 98 04/20/20 11:22 04/20/20 11:22 04/20/20 11:22 04/20/20 11:22 04/20/20 11:22 Course - Vital Signs Vital signs: Temp Pulse Resp BP Pulse Ox 98.2 F 122 H 20 176/108 H 98 04/20/20 11:22 04/20/20 11:22 04/20/20 11:22 04/20/20 11:23 04/20/20 11:22 Doctor's Discharge - Discharge Referrals: MARGIE MUNOZ MD [Primary Care Provider] - Follow up as needed
--- NOTE | 2020-04-20 12:25 | RADIOLOGY REPORT (SQ) ---
EXAM DESCRIPTION: WRIST LEFT 3 VIEWS IMAGES COMPLETED DATE/TIME: 04/20/2020 12:10 pm REASON FOR STUDY: fall; wrist pain COMPARISON: None. NUMBER OF VIEWS: Three views. TECHNIQUE: AP, lateral, and oblique radiographic images acquired of the left wrist. LIMITATIONS: None. FINDINGS: MINERALIZATION: Normal. BONES: No acute fracture or dislocation. No worrisome bone lesions. Normal alignment. SOFT TISSUES: No soft tissue swelling. No foreign body. OTHER: No other significant finding. IMPRESSION: NEGATIVE STUDY OF THE LEFT WRIST. NO RADIOGRAPHIC EVIDENCE OF ACUTE INJURY. TECHNICAL DOCUMENTATION: JOB ID: [id number] 2010 [employer]- All Rights Reserved Reading location - IP/workstation name: [email or web address]
[2020-04-20 12:28] LABS: APPEARANCE,URINE CLEAR; BILIRUBIN,URINE NEGATIVE (NEGATIVE); COLOR,URINE STRAW; GLUCOSE, URINE >=500 mg/dL (NEGATIVE); KETONES,URINE NEGATIVE (NEGATIVE); LEUKOCYTE ESTERASE,URINE TRACE (NEGATIVE); NITRITE,URINE NEGATIVE (NEGATIVE); PROTEIN,URINE NEGATIVE (NEGATIVE); URINE SPECIFIC GRAVITY 1.024; UROBILINOGEN,URINE NEGATIVE mg/dL (<2.0)
[2020-04-20 12:37] LABS: URINE AMPHETAMINES SCREEN NEGATIVE; URINE BARBITURATES SCREEN NEGATIVE; URINE BENZODIAZEPINES SCREEN NEGATIVE; URINE COCAINE SCREEN NEGATIVE; URINE MARIJUANA (THC) SCREEN NEGATIVE; URINE METHADONE SCREEN NEGATIVE; URINE PHENCYCLIDINE SCREEN NEGATIVE
--- NOTE | 2020-04-20 12:40 | RADIOLOGY REPORT (SQ) ---
EXAM DESCRIPTION: CT HEAD WITHOUT IMAGES COMPLETED DATE/TIME: 04/20/2020 12:22 pm REASON FOR STUDY: fall; hit head COMPARISON: 09/21/2019 TECHNIQUE: Axial images acquired through the brain without intravenous contrast. Images reviewed wi th bone, brain and subdural windows. Additional sagittal and coronal reconstructions were generated. Images stored on PACS. All CT scanners at this facility use dose modulation, iterative reconstruction, and/or weight based d osing when appropriate to reduce radiation dose to as low as reasonably achievable (ALARA). [facility]: Dose Right [facility]: CareDose [facility]: Dose Right [facility]: Teradose 4D [facility]: [employer] RADIATION DOSE: CT Rad equipment meets quality standard of care and radiation dose reduction techniq ues were employed. CTDIvol: 53.2 mGy. DLP: 1017 mGy-cm. mGy. LIMITATIONS: None. FINDINGS: VENTRICLES: Normal size and contour. CEREBRUM: Cortical atrophy. No masses. No hemorrhage. No midline shift. No evidence for acute inf arction. Areas of low density in the white matter most likely chronic small vessel ischemic changes. CEREBELLUM: No masses. No hemorrhage. No alteration of density. No evidence for acute infarction. EXTRAAXIAL SPACES: No fluid collections. No masses. ORBITS AND GLOBE: No intra- or extraconal masses. Normal contour of globe without masses. CALVARIUM: No fracture. PARANASAL SINUSES: No fluid or mucosal thickening. SOFT TISSUES: No mass or hematoma. OTHER: No other significant finding. IMPRESSION: Mild involutional changes with mild chronic microvascular ischemia. No acute intracrani al imaging findings. EVIDENCE OF ACUTE STROKE: NO. COMMENT: Quality ID # [id number]: Final reports with documentation of one or more dose reduction techniques (e.g., Automated exposure control, adjustment of the mA and/or kV according to patient size, use of iterative reconstruction technique) TECHNICAL DOCUMENTATION: JOB ID: [id number] 2010 [employer]- All Rights Reserved Reading location - IP/workstation name: [email or web address]
[2020-04-20 13:10] LABS: VENOUS BLOOD BASE EXCESS -0.9 mmol/L; VENOUS BLOOD HCO3 24.8 mmol/L (20-32); VENOUS BLOOD PCO2 44.6 mmHg (35-63); VENOUS BLOOD PH 7.36 (7.30-7.42)
[2020-04-20 13:11] LABS: ABSOLUTE EOSINOPHILS # (AUTO) 0.1 10^3/uL (0.0-0.6); ABSOLUTE LYMPHOCYTES (AUTO) 1.6 10^3/uL (0.5-4.7); ABSOLUTE MONOCYTES (AUTO) 0.4 10^3/uL (0.1-1.4); ABSOLUTE NEUT (AUTO) 4.4 10^3/uL (1.7-8.2); BASOPHILS % (AUTO) 0.4 % (0-2); EOSINOPHILS % (AUTO) 1.1 % (0-6); HEMOGLOBIN 14.8 g/dL (12.0-15.5); LYMPHOCYTES % (AUTO) 24.7 % (13-45); MEAN CORPUSCULAR HEMOGLOBIN 31.3 pg (27.0-33.4); MEAN CORPUSCULAR HGB CONC 33.6 g/dL (32.0-36.0); MEAN CORPUSCULAR VOLUME 93 fl (80-97); MONOCYTES % (AUTO) 5.6 % (3-13); PLATELET COUNT 301 10^3/uL (150-450); RED BLOOD COUNT 4.72 10^6/uL (3.72-5.28); RED CELL DISTRIBUTION WIDTH 13.5 % (11.5-14.0); SEGMENTED NEUTROPHILS % (AUTO) 68.2 % (42-78); TOTAL CELLS COUNTED % (AUTO) 100 %; WHITE BLOOD COUNT 6.4 10^3/uL (4.0-10.5)
[2020-04-20 13:28] LABS: ALBUMIN 4.4 g/dL (3.5-5.0); ALKALINE PHOSPHATASE 206 U/L (38-126); ANION GAP 18 (5-19); ASPARTATE AMINO TRANSFERASE 31 U/L (14-36); BILIRUBIN,DIRECT 0.5 mg/dL (0.0-0.4); BILIRUBIN,TOTAL 0.5 mg/dL (0.2-1.3); BLOOD UREA NITROGEN 20 mg/dL (7-20); CALCIUM 10.5 mg/dL (8.4-10.2); CARBON DIOXIDE 24 mmol/L (22-30); CHLORIDE 97 mmol/L (98-107); TOTAL PROTEIN 8.2 g/dL (6.3-8.2)
[2020-04-20 13:29] LABS: ACETAMINOPHEN < 10 ug/mL (10-30); ALCOHOL < 10 mg/dL (NONE DETECTED); SALICYLATE < 1.0 mg/dL (2.0-20.0)
[2020-04-20 13:36] LABS: GLUCOSE 475 mg/dL (75-110)
[2020-04-20] MEDS ORDERED: METOPROLOL TARTRATE PF/INJ 5 MG/5 ML SDV IV ONE (15:08)
--- NOTE | 2020-04-20 15:49 | PSYCHOLOGICAL NOTE ---
Psych Note - Psych Note Date seen by psych provider: 04/20/20 Time seen by psych provider: 13:30 Psych Note: Reason for Consult:psychosis Patient's son is at bedside per patient's request Patient has not been taking her medications because she thinks they are poisonous. She reports her bnaink-zk-gpf has told her this. She states she hers her [id number] everyday. Patient's mother- in -law lives in another state and she has had no contact with the patient for about 20 years. Patient states she has been taking her seroquel and amiantindine but that her Latuda is "bad for me." It is unclear what other medication she is or is not taking. Patient's son reports the patient has not been taking her medications "for awhile." Impression/Plan: Patient is recommended for 24 hour petition for evaluation. Patient is reporting hearing voices that are telling her her medication is poison. She has stopped taking her medications which has resulted in needing emergency medical treatment. Patient will be reevaluated. Dr. Rodriguez was consulted on the care and management of this patient; attending physician is in agreement with recommendations and disposition.
--- NOTE | 2020-04-20 15:52 | ER Document Report ---
Entered by ALLEN WOOTEN SCRIBE 04/20/20 1411 Acting as scribe for:MANDY PARNELL MD ED General - General Chief Complaint: Wrist Pain Stated Complaint: LEFT WRIST PAIN,SWELLING Time Seen by Provider: 04/20/20 11:24 Primary Care Provider: MARGIE MUNZO MD [Primary Care Provider] - Follow up as needed Mode of Arrival: Ambulatory Information source: Patient, Relative - Son Notes: This 64 year old female patient with a history significant for hypertension, diabetes mellitus, schizophrenia, and bipolar disorder presents to the ED today with complaints of left wrist pain and swelling status/post fall that occurred x1 week ago. Patient states that she fell onto her left wrist and hit her head. Son at bedside states that the patient has been refusing to take her medications because she thinks it is "poison." Patient does have a history of medical noncompliance. Son did bring a medication list that was last updated in 2013; from the pharmacy records that I can access, there are some medications that have been discontinued and added since 2013; however, the son does not know what they are. He mentions that the patient has only been taking the "short-term" insulin. TRAVEL OUTSIDE OF THE [place] IN LAST 30 DAYS: No - Related Data Allergies/Adverse Reactions: No Known Allergies Allergy (Verified 09/10/17 03:14) Home Medications: amiantindine. clonazapam. Dilitiazem. glipizode. ladtuda. Metformin'. Pioglitaxzone. seroquel. synthroid Past Medical History - General Information source: Relative - Son, [facility] Records - Social History Smoking Status: Never Smoker Cigarette use (# per day): No Chew tobacco use (# tins/day): No Smoking Education Provided: No Frequency of alcohol use: None Drug Abuse: None Family History: Reviewed & Not Pertinent - Past Medical History Cardiac Medical History: Reports: Hx Hypertension Endocrine Medical History: Reports: Hx Diabetes Mellitus Type 2 Psychiatric Medical History: Reports: Hx Bipolar Disorder, Hx Schizophrenia - Immunizations Hx Diphtheria, Pertussis, Tetanus Vaccination: Yes Review of Systems - Review of Systems Constitutional: No symptoms reported EENT: No symptoms reported Cardiovascular: No symptoms reported Respiratory: No symptoms reported Gastrointestinal: No symptoms reported Genitourinary: No symptoms reported Female Genitourinary: No symptoms reported Musculoskeletal: See HPI Skin: No symptoms reported Hematologic/Lymphatic: No symptoms reported Neurological/Psychological: See HPI -: Yes All other systems reviewed and negative Physical Exam - Vital signs Vitals: Temp Pulse Resp BP Pulse Ox 98.2 F 122 H 20 183/138 H 98 04/20/20 11:22 04/20/20 11:22 04/20/20 11:22 04/20/20 11:22 04/20/20 11:22 - General General appearance: Alert - Speaks in a high-pitched sqeaky voice In distress: None - HEENT Head: Normocephalic, Atraumatic Eyes: Normal Pupils: PERRL - Respiratory Respiratory status: No respiratory distress Chest status: Nontender Breath sounds: Normal Chest palpation: Normal - Cardiovascular Rhythm: Regular, Tachycardia Heart sounds: Normal auscultation Murmur: No Friction rub: No Gallop: None auscultated - Abdominal Inspection: Obese Distension: No distension Bowel sounds: Normal Tenderness: Nontender - Abdomen soft Organomegaly: No organomegaly - Back Back: Normal, Nontender - Extremities General lower extremity: Normal inspection. No: Edema Wrist: Other - Left wrist is swollen and tender to palpate secondary to ROM. No: Ecchymosis - Neurological Neuro grossly intact: Yes Orientation: AAOx4 Aaliyah Coma Scale Eye Opening: Spontaneous [place] Coma Scale Verbal: Oriented [place] Coma Scale Motor: Obeys Commands [place] Coma Scale Total: 15 - Psychological Associated symptoms: Other - She states that the medications are poison, but does not elaborate any further - Skin Skin Temperature: Warm Skin Moisture: Dry Skin Color: Normal Course - Re-evaluation Re-evalutation: 04/20/20 17:59 The patient's Accu-Chek went from 547 down to 198 and 6 hours after only receiving IV fluid. She obviously took a large dose of insulin prior to coming to the emergency room. The patient's hemoglobin A1c is >14.0 The patient was given Lopressor 5 mg IV. Her heart rate went from 122 down to 82, her blood pressure went from 181/1 138-169/91. - Vital Signs Vital signs: Temp Pulse Resp BP Pulse Ox 98.2 F 122 H 14 176/96 H 98 04/20/20 11:22 04/20/20 11:22 04/20/20 19:01 04/20/20 19:01 04/20/20 19:01 - Laboratory Result Diagrams: 04/20/20 12:35 04/20/20 12:35 Laboratory results interpreted by me: 04/20/20 04/20/20 04/20/20 11:41 12:00 12:35 Chloride 97 L Est GFR (MDRD) Non-Af 54 L Glucose 475 H* POC Glucose 547 H* Hemoglobin A1c % Calcium 10.5 H Direct Bilirubin 0.5 H Alkaline Phosphatase 206 H Free T3 pg/mL Urine Glucose (UA) >=500 H Ur Leukocyte Esterase TRACE H Salicylates < 1.0 L Acetaminophen < 10 L 04/20/20 04/20/20 04/20/20 12:35 12:35 16:08 Chloride Est GFR (MDRD) Non-Af Glucose POC Glucose 198 H Hemoglobin A1c % > 14.0 H Calcium Direct Bilirubin Alkaline Phosphatase Free T3 pg/mL 2.50 L Urine Glucose (UA) Ur Leukocyte Esterase Salicylates Acetaminophen Critical Care Note - Critical Care Note Total time excluding time spent on procedures (mins): 40 Comments: At least 40 minutes spent evaluating the patient, trying to get history from the bipolar manic patient, her not so well informed son, and reviewing the medical records and medication list brought by the son. There was a list printed by her primary care today that showed the start date of medications in September 2013 and nothing updating the medication to reflect what medication she is really on. Quite a bit of time was spent determining these discrepancies looking through online pharmacy records and trying to talk with the son who ended up saying he needed to talk to his father who knew more about the case. Time spent discussing the case with the behavioral health team, and having the involuntary commitment done. Patient was extremely hyperglycemic coming in, based on the very vague history about insulin usage, I elected to hydrate and not give insulin which was a good decision as the blood sugar dropped considerably with that intervention. Also had to spend time determining what medications she most likely would need during her overnight stay in the emergency room and the IVC capacity. Discharge - Discharge Clinical Impression: Patient refuses to take medication, Poorly controlled diabetes mellitus, Tachycardia, High blood pressure associated with diabetes Hyperglycemia due to type 2 diabetes mellitus Qualifiers: Diabetes mellitus salvage determiner insulin use: with salvage determiner use Qualified Code(s): E11.65 - Type 2 diabetes mellitus with hyperglycemia Sprain of left wrist Qualifiers: Encounter type: initial encounter Qualified Code(s): S63.502A - Unspecified sprain of left wrist, initial encounter Bipolar disorder Qualifiers: Active/Remission status: currently active Current bipolar episode type: hypomanic Qualified Code(s): F31.0 - Bipolar disorder, current episode hypomanic Condition: Good Disposition: PSYCH HOSP/UNIT Referrals: MARGIE MUNOZ MD [Primary Care Provider] - Follow up as needed I personally performed the services described in the documentation, reviewed and edited the documentation which was dictated to the scribe in my presence, and it accurately records my words and actions.
[2020-04-20 16:55] LABS: FREE T3 2.5 pg/mL (2.77-5.27); FREE T4 (FREE THYROXINE) 0.89 ng/dL (0.78-2.19)
[2020-04-20] MEDS: METFORMIN HCL 500 MG TABLET PO SCH (21:19)
[2020-04-20] MEDS: LOSARTAN POTASSIUM 50 MG TABLET PO SCH (21:19)
[2020-04-20] MEDS: QUETIAPINE FUMARATE 100 MG TABLET PO SCH (21:19)
[2020-04-20] MEDS: LURASIDONE HCL 40 MG TABLET PO SCH (21:20)
--- NOTE | 2020-04-20 22:04 | EKG REPORT ---
SEVERITY:- ABNORMAL ECG - SINUS TACHYCARDIA ABERRANT COMPLEX LEFT ANTERIOR FASCICULAR BLOCK : Confirmed by: Yocasta Renteria MD 20-Apr-2020 22:03:18
[2020-04-20] MEDS ORDERED: INSULIN REG, HUMAN 100 UNIT/ML 3 ML VIAL (PYX) SUBCUT ONE (22:15)
[2020-04-20] MEDS ORDERED: DEXTROSE 50%-WATER SYRINGE 25 GM/50 ML DOSE IV PRN (22:30)
[2020-04-20] MEDS ORDERED: DEXTROSE 50%-WATER SYRINGE 12.5 GM/25 ML DOSE IV PRN (22:30)
[2020-04-20] MEDS ORDERED: DEXTROSE 40% GEL 15 GM TUBE PO PRN (22:30)
[2020-04-20] MEDS ORDERED: GLUCAGON,HUMAN RECOMB 1 MG INJ IM PRN (22:30)
[2020-04-20] MEDS ORDERED: DEXTROSE 40% GEL 15 GM TUBE X 2 PO PRN (22:30)
[2020-04-20] MEDS: ALLOPURINOL 100 MG TABLET PO SCH (23:00)
[2020-04-20] MEDS: AMANTADINE HCL 100 MG CAPSULE PO SCH (23:01)
[2020-04-21] MEDS ORDERED: NORMAL SALINE 1000 ML 1,000 ML IV ONE (06:46)
[2020-04-21] MEDS: INSULIN REG, HUMAN 100 UNIT/ML 3 ML VIAL (PYX) SUBCUT SCH ×2 (08:10→12:03)
[2020-04-21] MEDS: QUETIAPINE FUMARATE 100 MG TABLET PO SCH (11:01)
[2020-04-21] MEDS: AMANTADINE HCL 100 MG CAPSULE PO SCH ×2 (11:01→13:50)
[2020-04-21] MEDS: LOSARTAN POTASSIUM 50 MG TABLET PO SCH (11:02)
[2020-04-21] MEDS: LURASIDONE HCL 40 MG TABLET PO SCH (11:02)
[2020-04-21] MEDS: ALLOPURINOL 100 MG TABLET PO SCH (11:02)
[2020-04-21] MEDS: METFORMIN HCL 500 MG TABLET PO SCH (11:57)
[2020-04-21 14:17] VITALS: BP 150/87
--- NOTE | 2020-04-21 15:00 | ER Document Report ---
Doctor's Note Notes: 04/21/20 14:58 Patient's vital signs, previous labs, diagnostic imaging reviewed. Reviewed mental health notes, nurses notes and previous vital signs. Patient is in no distress at this time denies any SI or HI. Wants to go home. Denies any complaints. General: Awake, alert Heart: RRR, no murmurs, rubs, gallops Lungs: CTABL Extremities: splint on left wrist A&P: Patient has been cleared by mental health. I discussed with patient that she will need to have close follow up with her primary care provider in regards to her blood sugars and her blood pressure. She also need to follow-up with them in regards to her wrist sprain. She will likely need orthopedic follow-up. Patient agrees with this plan.
--- NOTE | 2020-04-21 21:27 | PSYCHOLOGICAL NOTE ---
Psych Note - Psych Note Date seen by psych provider: 04/21/20 Time seen by psych provider: 11:39 - Evaluation with patient from [id number]. Discussion with son about plan of care at 1320. Discussion with spouse about plan of care at 1322. Linkage to [facility] at 1343. Psych Note: Patient is a 64 year old female in the Emergency Department on a 24 Hour Petition for Evaluation due to paranoia and persecutory delusions that her medication is poison so noncompliant with medication and has a history of Bipolar Disorder. He blood glucose levels were almost 500 which can cause confusion and impaired cognition. Home medication were restarted last evening by medical provider. Patient was eating lunch. She stated she was in the Emergency Department due to her wrist hurting. She reported she takes her medications at home and denied mental health history. She reported "I am feeling fine." She stated she resides with her and son. Patient was calm and pleasant. She made fair eye contact. She answered all questions appropriately when addressed. She did not talk with anybody in the room or report hearing the voice of her [id number]-rb-trv. She denied suicidal and homicidal ideation. Head CT from this visit has neurodegenerative process language. At 1320 called patient's son Willie ([phone]) and discussed plan of care. At 1322 called patient's spouse Javed ([phone]) and discussed plan of care. Also provided with the outpatient mental health resource sheet in person in the lobby. Explained how [facility] services emailed him (he provided email address during phone conversation: [email or web address]) paperwork they must complete and send back, then they will get a phone call arranging appointments. Also highlighted both mobile crisis numbers. Explained patient would benefit from multi system (primary care, mental health, neurology) follow up. He stated patient has an appointment with primary care next week. Suggested he ensure to bring up the diabetes and how medical provider noted patient would likely need a sliding scale injection. also noted patient's insurances are Medicare and for Life. He noted the [employer] is old and outdated. At 1343 called [facility] Services, spoke to Hernandez (female), and made linkage for outpatient mental health services (medication management and therapy). Clinical Presentation: Psychosis- paranoia and persecutory delusions Noncompliance with medication Elevated Glucose Levels History of Bipolar Disorder Concerns for neurodegnerative process language on Head CT Impression/Plan: Patient is cleared from acute psychiatric services. Recommendation to [facility] 24 Hour Petition for Evaluation. Patient took medications when administered last night and this morning. She did not talk with anybody not in the room and did not mention hearing her ggpdwf-gc-lio's voice. She denied suicidal and homicidal ideation. She was calm and pleasant. Included both son and in plan of care. Went over plan of care more with who provided transportation home. He was given the outpatient mental health resource sheet which highlighted both mobile crisis numbers, documented [facility] emailing paperwork to begin services, and noted multi system primary care, mental health, neurology) follow up. noted primary care appointment next week and encouraged to ensure talking about diabetes and request neurology referral. Consulted with Dr. Rodriguez regarding the management and carer of patient. ED Physician in agreement with recommendations.
== END 2020-04-21 15:00 | disposition home or self-care (01) ==
LOC: ER 11:13
DX: S63.502A Unspecified sprain of left wrist, initial encounter (principal); W06.XXXA Fall from bed, initial encounter; W22.03XA Walked into furniture, initial encounter; F31.0 Bipolar disorder, current episode hypomanic; F29 Unspecified psychosis not due to a substance or known physiological condition; E11.65 Type 2 diabetes mellitus with hyperglycemia; E11.69 Type 2 diabetes mellitus with other specified complication; I15.2 Hypertension secondary to endocrine disorders; T46.1X6A Underdosing of calcium-channel blockers, initial encounter; Z91.128 Patient's intentional underdosing of medication regimen for other reason; Z91.14 Patient's other noncompliance with medication regimen; R00.0 Tachycardia, unspecified; Z79.4 Long term (current) use of insulin
CPT/HCPCS: 93005; 99291; 96361 ×2; 96374; 36415; 84439; 82962; 80307 ×4; 85025; 80053; 81001; 84481; 83036; 82803; 73110; 70450; 93010; A9270 ×14; J3490; J7030 ×2; J1815

== ENCOUNTER 2020-06-27 03:24 | Observation (INO) | payer MEDICARE, OTHER ==
--- NOTE | 2020-06-27 03:59 | ER Document Report ---
ED General - General Chief Complaint: Low Blood Sugar Stated Complaint: LOW BLOOD SUGAR Time Seen by Provider: 06/27/20 03:50 Primary Care Provider: MARGIE MUNOZ MD [Primary Care Provider] - Follow up as needed Notes: Patient is a 65-year-old female with a history of insulin-dependent type 2 diabetes and schizophrenia that comes to the emergency department for chief complaint of confusion. EMS states when they arrived patient was disoriented, diaphoretic, blood pressure in the 80s systolic, glucose in the 60s. Patient was given 500 cc bolus and 12.5 g of dextrose IV, after this vital signs normalized, confusion resolved. notes that about 9 PM patient took 40 units of NovoLog after her blood glucose had read "HI". Patient is completely oriented, states she is hungry, denies any current complaints, states she felt good throughout the day, EMS states stated she had no sick symptoms or abnormal behaviors during the day. Patient is on Metformin and insulin, Latuda, Seroquel, losartan, and gout medications. TRAVEL OUTSIDE OF THE [place] IN LAST 30 DAYS: No - Related Data Allergies/Adverse Reactions: No Known Allergies Allergy (Verified 09/10/17 03:14) Past Medical History - General Information source: Patient - Social History Smoking Status: Never Smoker Frequency of alcohol use: None Drug Abuse: None Lives with: Family Family History: Reviewed & Not Pertinent - Past Medical History Cardiac Medical History: Reports: Hx Hypertension Endocrine Medical History: Reports: Hx Diabetes Mellitus Type 2 Renal/ Medical History: Denies: Hx Peritoneal Dialysis Psychiatric Medical History: Reports: Hx Bipolar Disorder, Hx Schizophrenia - Immunizations Hx Diphtheria, Pertussis, Tetanus Vaccination: Yes Review of Systems - Review of Systems Constitutional: See HPI EENT: No symptoms reported Cardiovascular: See HPI Respiratory: No symptoms reported Gastrointestinal: No symptoms reported Genitourinary: No symptoms reported Female Genitourinary: No symptoms reported Musculoskeletal: No symptoms reported Skin: See HPI Hematologic/Lymphatic: No symptoms reported Neurological/Psychological: See HPI Physical Exam - Vital signs Vitals: BP Pulse Ox 110/68 100 06/27/20 03:53 06/27/20 03:53 - Notes Notes: GENERAL: Alert, interacts well. No acute distress. HEAD: Normocephalic, atraumatic. EYES: Pupils equal, round, and reactive to light. Extraocular movements intact. ENT: Oral mucosa moist, tongue midline. Oropharynx unremarkable. Airway patent. NECK: Full range of motion. Supple. Trachea midline. No lymphadenopathy. LUNGS: Clear to auscultation bilaterally, no wheezes, rales, or rhonchi. No respiratory distress. Non-tender chest wall. HEART: Regular rate and rhythm. No murmur ABDOMEN: Soft, non-tender. Non-distended. Bowel sounds present in all 4 quadrants. GENITOURINARY: Deferred EXTREMITIES: Moves all 4 extremities spontaneously. No edema, normal radial and dorsalis pedis pulses bilaterally. No cyanosis. BACK: no cervical, thoracic, lumbar midline tenderness. No saddle anesthesia, normal distal neurovascular exam. Moves all extremities in full range of motion. NEUROLOGICAL: Alert and oriented x3. Normal speech. Cranial nerves II through XII grossly intact. Strength 5/5 in all extremities. PSYCH: Slightly flat affect but cooperative, alert, and still conversational SKIN: Warm, dry, normal turgor. No rashes or lesions noted. Course - Re-evaluation Re-evalutation: Patient is alert, back to baseline, no complaints. Glucose is in the 80s on recheck. Patient was fed. Vital signs unremarkable other than hypothermia which is expected given her hypoglycemia. Physical exam is unremarkable. Patient ate a sandwich. CBC unremarkable, chemistry shows mild hypokalemia although this is expected given shift from insulin, EKG does not show concerning acute changes, I suspect this is transient. Troponin unremarkable. Chest x-ray unremarkable. 06/27/20 05:58 Glucose trending upwards, however patient suddenly became significantly hypotensive. This was confirmed with manual blood pressure cuff, confirmed to be in the 60s. Patient remains arousable but is very drowsy. We have to bilateral 22-gauges in the wrists, I placed a 20-gauge in the right AC and obtained venous blood gas, lactic acid, blood cultures. Giving IV fluid bolus. Performing straight catheterization. Uncertain of the cause of patient's repeat hypotension. Patient is still hypothermic as well. came to bedside and I spoke to him, he states that he monitors his closely with her insulin doses although he states it is possible that around 11 PM she went into her room and took additional medication. He states the only other thing she might of taken would be either Seroquel or Latuda, however he states he does not feel this is likely. He states he has no suspicion of intentional overdose or suicidality. Patient denies SI or HI. He states she does not have a history of frequent accidental overdose and he monitors what the medication she takes very closely. Patient discussed with Dr. Murphy. Discussed with patient and , will discuss with hospitalist for admission for hypoglycemia, hypotension episodes, hypothermia. After IV fluid bolus hypotension resolved, on repeat glucose is not downtrending. 06/27/20 07:53 Discussed with Kayla Medley NP, patient accepted to telemetry observation under Dr. Ross. - Vital Signs Vital signs: Temp Pulse Resp BP Pulse Ox 94.2 F L 14 112/65 100 06/27/20 06:40 06/27/20 07:10 06/27/20 07:10 06/27/20 07:10 - Laboratory Result Diagrams: 06/27/20 04:19 06/27/20 04:19 Laboratory results interpreted by me: 06/27/20 06/27/20 06/27/20 04:19 04:19 04:19 RDW 14.7 H Potassium 3.1 L BUN 26 H Creatinine 1.35 H Est GFR ( Amer) 47 L Est GFR (MDRD) Non-Af 39 L POC Glucose Lactic Acid Alkaline Phosphatase 131 H Urine Glucose (UA) Salicylates < 1.0 L Acetaminophen < 10 L 06/27/20 06/27/20 06/27/20 05:16 05:45 05:54 RDW Potassium BUN Creatinine Est GFR ( Amer) Est GFR (MDRD) Non-Af POC Glucose 144 H 203 H Lactic Acid 2.7 H Alkaline Phosphatase Urine Glucose (UA) Salicylates Acetaminophen 06/27/20 06/27/20 06:13 06:55 RDW Potassium BUN Creatinine Est GFR ( Amer) Est GFR (MDRD) Non-Af POC Glucose 210 H Lactic Acid Alkaline Phosphatase Urine Glucose (UA) >=500 H Salicylates Acetaminophen - EKG Interpretation by Me Additional EKG results interpreted by me: EKG shows sinus rhythm at a rate of 92, QTc 485, normal axis, borderline flattened T waves throughout, no T wave inversions or ST segment changes in consecutive leads. Discharge - Discharge Clinical Impression: Hypoglycemia Hypotension Qualifiers: Hypotension type: unspecified hypotension type Qualified Code(s): I95.9 - Hypotension, unspecified Hypothermia Qualifiers: Encounter type: initial encounter Qualified Code(s): T68.XXXA - Hypothermia, initial encounter Condition: Stable Disposition: ADMITTED OBSERVATION Admitting Provider: Vandana (Hospitalist) - Kayla Medley [employer]SING [employer]ACILITY COUNSELOR Unit Admitted: Telemetry Referrals: MARGIE MUNOZ MD [Primary Care Provider] - Follow up as needed
[2020-06-27 04:41] LABS: ABSOLUTE EOSINOPHILS # (AUTO) 0.1 10^3/uL (0.0-0.6); ABSOLUTE MONOCYTES (AUTO) 0.3 10^3/uL (0.1-1.4); ABSOLUTE NEUT (AUTO) 3.1 10^3/uL (1.7-8.2); BASOPHILS % (AUTO) 0.6 % (0-2); HEMATOCRIT 36.2 % (36.0-47.0); HEMOGLOBIN 12.2 g/dL (12.0-15.5); LYMPHOCYTES % (AUTO) 22.7 % (13-45); MEAN CORPUSCULAR HEMOGLOBIN 30.8 pg (27.0-33.4); MEAN CORPUSCULAR HGB CONC 33.7 g/dL (32.0-36.0); MEAN CORPUSCULAR VOLUME 91 fl (80-97); MONOCYTES % (AUTO) 7.2 % (3-13); PLATELET COUNT 213 10^3/uL (150-450); RED BLOOD COUNT 3.96 10^6/uL (3.72-5.28); RED CELL DISTRIBUTION WIDTH 14.7 % (11.5-14.0); SEGMENTED NEUTROPHILS % (AUTO) 67.5 % (42-78); TOTAL CELLS COUNTED % (AUTO) 100 %; WHITE BLOOD COUNT 4.5 10^3/uL (4.0-10.5)
[2020-06-27 05:01] LABS: ALBUMIN 3.9 g/dL (3.5-5.0); ALKALINE PHOSPHATASE 131 U/L (38-126); ANION GAP 11 (5-19); ASPARTATE AMINO TRANSFERASE 32 U/L (14-36); BILIRUBIN,DIRECT 0.2 mg/dL (0.0-0.4); BILIRUBIN,TOTAL 0.5 mg/dL (0.2-1.3); BLOOD UREA NITROGEN 26 mg/dL (7-20); CALCIUM 9.7 mg/dL (8.4-10.2); CARBON DIOXIDE 25 mmol/L (22-30); CHLORIDE 101 mmol/L (98-107); GLUCOSE 81 mg/dL (75-110); POTASSIUM 3.1 mmol/L (3.6-5.0); TOTAL PROTEIN 7.1 g/dL (6.3-8.2)
[2020-06-27] MEDS ORDERED: NORMAL SALINE 1000 ML 1,000 ML IV ONE ×2 (05:54→09:22)
[2020-06-27 06:18] LABS: VENOUS BLOOD BASE EXCESS -2.1 mmol/L; VENOUS BLOOD HCO3 24.9 mmol/L (20-32); VENOUS BLOOD PCO2 50.9 mmHg (35-63); VENOUS BLOOD PH 7.31 (7.30-7.42)
[2020-06-27 06:22] LABS: APPEARANCE,URINE CLEAR; BILIRUBIN,URINE NEGATIVE (NEGATIVE); COLOR,URINE STRAW; GLUCOSE, URINE >=500 mg/dL (NEGATIVE); KETONES,URINE NEGATIVE (NEGATIVE); LEUKOCYTE ESTERASE,URINE NEGATIVE (NEGATIVE); NITRITE,URINE NEGATIVE (NEGATIVE); PROTEIN,URINE NEGATIVE (NEGATIVE); URINE SPECIFIC GRAVITY 1.011; UROBILINOGEN,URINE NEGATIVE mg/dL (<2.0)
--- NOTE | 2020-06-27 06:25 | RADIOLOGY REPORT (SQ) ---
EXAM DESCRIPTION: XR CHEST 1 VIEW COMPLETED DATE/TME: 06/27/2020 05:40 CLINICAL HISTORY: 65 years, Female, hypotension COMPARISON: 04/26/2019 NUMBER OF VIEWS: One TECHNIQUE: AP view of the chest LIMITATIONS: None. FINDINGS: Lungs are clear. The heart is normal in size. No pneumothorax or pleural effusion. Bones are unremarkable IMPRESSION: No acute cardiopulmonary abnormality copyright 2010 [employer]- All Rights Reserved
[2020-06-27 06:29] LABS: ACETAMINOPHEN < 10 ug/mL (10-30); ALCOHOL < 10 mg/dL (NONE DETECTED); SALICYLATE < 1.0 mg/dL (2.0-20.0)
[2020-06-27 06:37] LABS: URINE AMPHETAMINES SCREEN NEGATIVE; URINE BARBITURATES SCREEN NEGATIVE; URINE BENZODIAZEPINES SCREEN NEGATIVE; URINE COCAINE SCREEN NEGATIVE; URINE MARIJUANA (THC) SCREEN NEGATIVE; URINE METHADONE SCREEN NEGATIVE; URINE PHENCYCLIDINE SCREEN NEGATIVE
[2020-06-27] MEDS ORDERED: MAG HYDROX/AL HYDROX/SIMETH SUSP 30 ML UDCUP PO PRN (09:03)
[2020-06-27] MEDS ORDERED: ACETAMINOPHEN 325 MG TABLET PO PRN (09:03)
[2020-06-27] MEDS ORDERED: ALBUTEROL SULFATE 0.083% NEB 2.5 MG/3 ML AMPUL NEB PRN (09:03)
[2020-06-27] MEDS ORDERED: ONDANSETRON HCL INJ/PF 4 MG/2 ML SDV IV PRN (09:03)
[2020-06-27] MEDS ORDERED: DEXTROSE 40% GEL 15 GM TUBE PO PRN ×2 (09:23)
[2020-06-27] MEDS ORDERED: GLUCAGON,HUMAN RECOMB 1 MG INJ IM PRN (09:23)
[2020-06-27] MEDS ORDERED: DEXTROSE 50%-WATER 25 GM/50 ML DISP.SYRIN IV PRN ×2 (09:23)
--- NOTE | 2020-06-27 10:00 | PDOC H&P ---
History of Present Illness Admission Date/PCP: 06/27/20 08:09 MARGIE MUNOZ MD Patient complains of: Increased confusion; hypoglycemia, hypothermia, hypotension History of Present Illness: VENKAT GRAY is a 65 year old female with a past medical history of bipolar, schizophrenia, hypertension, DM 2, and medication noncompliance who presented to the emergency department today via EMS for altered mental status from baseline, hypoglycemia, hypotension, and hypothermia. Per patient's , she took 40 units of NovoLog last night for correction of hyperglycemia. She does not utilize long-acting insulins. Upon EMS arrival, her blood sugar was noted to be in the 40s. She was provided D10 and fluid boluses. Upon arrival to the emergency department, her vital signs were, initially, unremarkable other than a persistently low temperature (verified rectally is 93.9). CBC, VBG, chemistry, urinalysis, and UDS were essentially unremarkable. Only notable findings were mild hypokalemia (3.1) and a mild BRANDON (CR 1.35/BUN 26). EKG showed sinus rhythm. Chest x-ray was unremarkable. The provider was preparing to discharge the patient when she again became hyp otensive with blood pressures 58/39. Therefore, she is referred to the hospitalist service for further evaluation and management of the above-stated complaints and findings. Past Medical History Cardiac Medical History: Reports: Hypertension Denies: Congestive Heart Failure, Coronary Artery Disease, Myocardial Infarction, Hyperlipidema Pulmonary Medical History: Reports: None EENT Medical History: Reports: None Endocrine Medical History: Reports: None, Diabetes Mellitus Type 2, Obesity Renal/ Medical History: Reports: None Malignancy Medical History: Reports: None GI Medical History: Reports: None Musculoskeltal Medical History: Reports: None Skin Medical History: Reports: None Psychiatric Medical History: Reports: Bipolar Disorder, Schizoaffective Disorder Traumatic Medical History: Reports: None Hematology: Reports: None Infectious Medical History: Reports: None Past Surgical History Past Surgical History: Reports: None Social History Information Source: [facility] Records Lives with: Family Smoking Status: Never Smoker Electronic Cigarette use?: No Frequency of Alcohol Use: None Hx Recreational Drug Use: No Hx Prescription Drug Abuse: No - Advance Directive Resuscitation Status: Full Code Family History Family History: Reviewed & Not Pertinent Parental Family History Reviewed: No - AMS Children Family History Reviewed: Unknown Sibling(s) Family History Reviewed.: Unknown Medication/Allergy Home Medications: Amantadine HCl [Amantadine] 100 mg PO TID 03/19/19 Quetiapine Fumarate [Seroquel Xr] 400 mg PO QHS 03/19/19 Insulin Aspart [Novolog] 0 unit SUBCUT .SLD SCALE 04/20/20 Losartan Potassium [Cozaar 50 mg Tablet] 50 mg PO DAILY 04/20/20 Allergies/Adverse Reactions: No Known Allergies Allergy (Verified 09/10/17 03:14) Review of Systems ROS unobtainable: Due to mental status Physical Exam Vital Signs: Temp Pulse Resp BP Pulse Ox 94.2 F L 14 112/65 100 06/27/20 06:40 06/27/20 07:10 06/27/20 07:10 06/27/20 07:10 Intake & Output 06/26/20 06/27/20 06/28/20 06:59 06:59 06:59 Intake Total 1000 Balance 1000 Weight 68.3 kg General appearance: PRESENT: no acute distress, disheveled, well-developed, well-nourished - Overweight Head exam: PRESENT: atraumatic, normocephalic Eye exam: PRESENT: conjunctiva pink, EOMI, PERRLA. ABSENT: scleral icterus Ear exam: PRESENT: normal external ear exam Mouth exam: PRESENT: dry mucosa, tongue midline Teeth exam: PRESENT: poor dentation Neck exam: ABSENT: carotid bruit, JVD, lymphadenopathy, thyromegaly Respiratory exam: PRESENT: clear to auscultation soy, symmetrical, unlabored. ABSENT: rales, rhonchi, wheezes Cardiovascular exam: PRESENT: RRR, +S1, +S2. ABSENT: diastolic murmur, rubs, systolic murmur Pulses: PRESENT: normal dorsalis pedis pul Vascular exam: PRESENT: normal capillary refill GI/Abdominal exam: PRESENT: normal bowel sounds, soft. ABSENT: distended, guarding, mass, organolmegaly, rebound, tenderness Rectal exam: PRESENT: deferred Extremities exam: PRESENT: full ROM. ABSENT: calf tenderness, clubbing, pedal edema Neurological exam: PRESENT: alert, awake, oriented to person, CN II-XII grossly intact, other - Disoriented; intermittently speaking Marshallese and Pashto. D ifficult to understand. Does not answer questions or follow directions. Previously became agitated inventoring meds; stating we were not to touch her potions.. ABSENT: motor sensory deficit Psychiatric exam: PRESENT: appropriate affect, normal mood. ABSENT: homicidal ideation, suicidal ideation Skin exam: PRESENT: dry, intact, warm. ABSENT: cyanosis, rash Results Laboratory Results: 06/27/20 04:19 06/27/20 04:19 06/27/20 06/27/20 06/27/20 04:19 04:19 04:19 WBC 4.5 RBC 3.96 Hgb 12.2 Hct 36.2 MCV 91 MCH 30.8 MCHC 33.7 RDW 14.7 H Plt Count 213 Seg Neutrophils % 67.5 VBG pH VBG pCO2 VBG HCO3 VBG Base Excess Sodium 137.4 Potassium 3.1 L Chloride 101 Carbon Dioxide 25 Anion Gap 11 BUN 26 H Creatinine 1.35 H Est GFR ( Amer) 47 L Glucose 81 Lactic Acid Calcium 9.7 Magnesium 2.1 Total Bilirubin 0.5 AST 32 Alkaline Phosphatase 131 H Total Protein 7.1 Albumin 3.9 Urine Color Urine Appearance Urine pH Ur Specific [place] Urine Protein Urine Glucose (UA) Urine Ketones Urine Blood Urine Nitrite Ur Leukocyte Esterase Urine WBC (Auto) Urine RBC (Auto) 06/27/20 06/27/20 06/27/20 05:54 05:54 06:13 WBC RBC Hgb Hct MCV MCH MCHC RDW Plt Count Seg Neutrophils % VBG pH 7.31 VBG pCO2 50.9 VBG HCO3 24.9 VBG Base Excess -2.1 Sodium Potassium Chloride Carbon Dioxide Anion Gap BUN Creatinine Est GFR ( Amer) Glucose Lactic Acid 2.7 H Calcium Magnesium Total Bilirubin AST Alkaline Phosphatase Total Protein Albumin Urine Color STRAW Urine Appearance CLEAR Urine pH 6.0 Ur Specific [place] 1.011 Urine Protein NEGATIVE Urine Glucose (UA) >=500 H Urine Ketones NEGATIVE Urine Blood NEGATIVE Urine Nitrite NEGATIVE Ur Leukocyte Esterase NEGATIVE Urine WBC (Auto) 1 Urine RBC (Auto) 0 06/27/20 04:19 Troponin I < 0.012 Impressions: Chest X-Ray 06/27/20 03:56 IMPRESSION: No acute cardiopulmonary abnormality copyright 2011 [employer]- All Rights Reserved Assessment and Plan - Diagnosis (1) SIRS (systemic inflammatory response syndrome) Is this a current diagnosis for this admission?: Yes Plan: Patient presented with altered mental status from baseline, hypothermia, hypotension, and hypoglycemia. Her reported to EMS that she took 40 units of NovoLog yesterday due to elevated blood sugars. He denied any recent symptoms of illness/infectious process. Evaluation in the emergency department has been unremarkable other than persistent hypothermia and recurrent hypotension is initially responsive to fluids. Chest x-ray is benign Urinalysis negative. Blood cultures pending. No skin breakdown. No clear source of an infectious process to explain her laboratory and vital sign changes. Following 2 L IV fluids provided by EMS and ED provider, the patient's lactic acid is again elevated to 2.7. Patient is admitted to medical floor on continuous cardiac telemetry. We will provide additional IV fluids for a total of 3 L. Start Accu-Cheks every 4 hours with sliding scale insulin and hypoglycemia protocol in place. Follow-up lactic acid. Check TSH Monitor for development of signs or symptoms of infection. As there are none currently, will hold on antibiotic therapies. (2) Hypoglycemia Is this a current diagnosis for this admission?: Yes Plan: Likely secondary to medication misuse and accidental NovoLog overdose. Per ED provider, the patient's reported that her blood sugar has been persistently elevated into the 200s and at bedtime last night read high. Therefore, patient injected 40 units of NovoLog. Treated with D10 per EMS. We will continue Accu-Cheks every 4 hours. Sliding scale Humalog Hypoglycemia protocol. A1c pending. (3) Hypotension Qualifiers: Hypotension type: unspecified hypotension type Qualified Code(s): I95.9 - Hypotension, unspecified Is this a current diagnosis for this admission?: Yes Plan: Labile blood pressures; does have a history of hypertension. Blood pressure does respond to fluid boluses. Lowest while in the emergency department was 73/53. Unclear etiology; initially presumed to be related to hypoglycemia. However her blood sugars have now been stabilized. Possibly also medication miss-use as the patient had an accidental insulin over dose and she is prescribed antihypertensives. No clear infectious process. Additional IVF Fall precautions. Further evaluation management as in #1 (4) Hypothermia Qualifiers: Encounter type: initial encounter Qualified Code(s): T68.XXXA - Hypothermia, initial encounter Is this a current diagnosis for this admission?: Yes Plan: Unclear etiology; persistently low temperature. Verified rectally 93.9. Check TSH Evaluation management as a #1. (5) Hypertension Is this a current diagnosis for this admission?: Yes Plan: Hypertensive at present. Holding home dose medication. (6) Schizophrenia Is this a current diagnosis for this admission?: Yes Plan: Mental Health consultation requested (7) Altered mental status Is this a current diagnosis for this admission?: Yes Plan: Secondary to all of the above. Will obtain Head CT. Further management as in #1 - Time Time Spent with patient: 35 or more minutes Medications reviewed and adjusted accordingly: Yes Anticipated Discharge Disposition: Home, Self Care Anticipated Discharge Timeframe: within 48 hours
--- NOTE | 2020-06-27 10:03 | EKG REPORT ---
SEVERITY:- BORDERLINE ECG - SINUS RHYTHM BORDERLINE T ABNORMALITIES, ANT-LAT LEADS : Confirmed by: Herbie Bland MD 27-Jun-2020 10:02:08
--- NOTE | 2020-06-27 10:29 | RADIOLOGY REPORT (SQ) ---
EXAM DESCRIPTION: CT HEAD WITHOUT IMAGES COMPLETED DATE/TIME: 06/27/2020 10:19 am REASON FOR STUDY: ams E11.65 TYPE 2 DIABETES MELLITUS WITH HYPERGLYCEMIA D64.9 ANEMIA, UNSPECIFIED R41.82 ALTERED MENTAL STATUS, UNSPECIFIED COMPARISON: 04/20/2020 TECHNIQUE: Axial images acquired through the brain without intravenous contrast. Images reviewed wi th bone, brain and subdural windows. Additional sagittal and coronal reconstructions were generated. Images stored on PACS. All CT scanners at this facility use dose modulation, iterative reconstruction, and/or weight based d osing when appropriate to reduce radiation dose to as low as reasonably achievable (ALARA). [facility]: Dose Right [facility]: CareDose [facility]: Dose Right [facility]: Teradose 4D [facility]: NeurAxon RADIATION DOSE: CT Rad equipment meets quality standard of care and radiation dose reduction techniq ues were employed. CTDIvol: 53.2 mGy. DLP: 991 mGy-cm.mGy. LIMITATIONS: None. FINDINGS: VENTRICLES: Prominent. CEREBRUM: No masses. No hemorrhage. No midline shift. 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 Areas of low den sity in the white matter most likely due to chronic micro-vascular ischemic change. No evidence for acute infarction. CEREBELLUM: No masses. No hemorrhage. No alteration of density. No evidence for acute infarction. EXTRAAXIAL SPACES: Age-related involutional change. No fluid collections. No masses. ORBITS AND GLOBE: No intra- or extraconal masses. Normal contour of globe without masses. CALVARIUM: No fracture. PARANASAL SINUSES: No fluid or mucosal thickening. SOFT TISSUES: No mass or hematoma. OTHER: No other significant finding. IMPRESSION: CHRONIC CHANGES OF ATROPHY AND MICROVASCULAR ISCHEMIA. NO ACUTE PROCESS. EVIDENCE OF ACUTE STROKE: NO. TECHNICAL DOCUMENTATION: JOB ID: [id number] Quality ID # [id number]: Final reports with documentation of one or more dose reduction techniques (e.g., Au tomated exposure control, adjustment of the mA and/or kV according to patient size, use of iterative reconstruction technique) 2010 [employer]- All Rights Reserved Reading location - IP/workstation name: [email or web address]
[2020-06-27] MEDS: INSULIN LISPRO 100 UNIT/ML 3 ML VIAL SUBCUT SCH ×4 (11:02→22:02)
[2020-06-27] MEDS: DOCUSATE SODIUM 100 MG CAPSULE PO SCH (11:11)
[2020-06-27] MEDS: ENOXAPARIN SODIUM INJ 40 MG/0.4 ML DISP.SYRIN SUBCUT SCH (11:11)
--- NOTE | 2020-06-27 11:51 | PSYCHOLOGICAL NOTE ---
Psych Note - Psych Note Date seen by psych provider: 06/27/20 Time seen by psych provider: 10:48 Psych Note: [id number] Reason for Consult: confusion Consent Permissions: Javed, Patient is a 65 year old female who presented to the [facility] ED today via EMS for health concerns. Upon arriving to the ED, EMS had reported patient was confused and disoriented. Patient has a history of Schizophrenia and was admitted to the ED for confusion. Patient was difficult to understand. Patient denies suicidal ideation, plan, and intent. She denies homicidal ideation, plan, and intent. She reports coming to the ED via ambulance because she was not feeling well. Patient reports she cannot recall her psychiatric medications and states she is not taking all of them because they are poisonous. Patient reported her spouse was Javed and he would know her medications prescribed to her. Upon leaving the room, patient began having a conversation out loud, however clinician was unable to make out what she was saying. Patient is well known to the ED and has been evaluated by psych multiple times in the past. Historically, patient was diagnosed with Schizophrenia and often becomes non-compliant with medication regimen. Collateral: [id number] Contacted patients , Javed. He stated She was non responsive and sweating and he called for EMS. He reports thinking patient . Spouse believes patient accidentally mistook her insulin medication. He states, She must have taken another dose of insulin after 2100, her blood sugar was over 500, and at 2300 when we went to bed she must have taken another shot. He states patient is not taking all of her medications. Regarding psychiatric medications, he states she is taking Latuda and Seroquel, but not Amantadine. Javed states patient was last sent inpatient in summer and he does not feel inpatient is necessary. Javed does not have safety concerns for patient at this time and states This was not intentional. He reports patient will tell you that she cannot . Javed states patient verbalizes grandiose delusions to include being the richest woman in the world. He reports patient is talking to someone constantly and states she verbalizes with someone who is not there. He also reports patient says there is a woman who keeps poking her feet. He reports patient will be lying in bed and will start yelling at someone to stop poking her feet. He reports these behaviors are ongoing and have been occurring for over a decade. He states these occur at baseline and when patient is compliant with medications. He reports patient will periodically get upset with him. He states it depends how their relationship is in the home. He reports most of the time it is good, however, out of the blue patient will make bizarre statements that Javed has called her ugly and they will not talk for a couple of days. He states this occurred on and states, We just came off of one of those. She is Bipolar and just flipped on us. Javed reports patient is in charge of her own medications, however family encourages her to take them. He states, Eventually she will say everything she has been given is poison. It is only a matter of ti me before she eliminates more medications. He reports medication management with Dr. Campbell, in [place]. Patient is supposed to have a visiting nurse in the home who has not showed up due to COVID. Javed is trying to get back into [facility] for medication management if the in home nurse is not going to make visits. States they used to go to [facility] and after this in home referral was made, he attempted to go back to [facility] with patient and they would not allow them to be seen. Patient was alert and oriented to self, person, place, and time evidenced by asking where she was, the current date, and current year. Mood was content with congruent affect. She denied current suicidal ideation, plan, and intent. Patient denies homicidal ideation, plan, and intent. Patient did not appear to be responding to internal stimuli as evidenced by fair eye contact and answering questions appropriately when addressed throughout evaluation, however was responding as clinician left the room (talking out loud to someone). Thought processes are fair, however patient was difficult to understand. Conversational speech was within normal limits for rate, tone and prosody. Intellectual abilities are estimated to be average. Insight, judgment and impulse control were poor as evidenced by possible accidental misuse of insulin. Patient demonstrates future forward goal oriented thinking as evidenced by reporting she wanted to go home to be with . Clinical Presentation: confusion IVC Criteria per [place] GS 122C Dangerous to others Within the relevant past the individual No has inflicted or attempted to inflict or threatened to inflict serious bodily harm on another AND No that there is a reasonable probability that this conduct will be repeated. OR No has acted in such a way as to create a substantial risk of serious bodily harm to another AND No that there is a reasonable probability that this conduct will be repeated. OR No has engaged in extreme destruction of property AND NO that there is a reasonable probability that this conduct will be repeated. Previous episodes of dangerousness to others, when applicable, may be considered when determining reasonable probability of future dangerous conduct. Clear, cogent, and convincing evidence that an individual has committed a homicide in the relevant past is prima facie evidence of dangerousness to others. Dangerous to self Within the relevant past the individual has done any of the following: acted in such a way as to show ALL of the following: No The individual would be unable without care, supervision, and the continued assistance of others not otherwise available, to exercise self- control, judgment, and discretion in the conduct of the individual's daily responsibilities and social relations or to satisfy the individual's need for nourishment, personal or medical care, mcfp, or self-protection and safety. AND No There is a reasonable probability of the individual suffering serious physical debilitation within the near future unless adequate treatment is given. A showing of behavior that is grossly irrational, of actions that the individual is unable to control, of behavior that is grossly inappropriate to the situation, or of other evidence of severely impaired insight and judgment shall create a prima facie inference that the individual is unable to care for himself or herself. OR No has attempted suicide or threatened suicide AND No that there is a reasonable probability of suicide unless adequate treatment is given OR No has mutilated himself or herself or attempted to mutilate himself or herself Patient may have accidentally took too much insulin; denies suicidal ideation, plan, and intent; agrees AND No that there is a reasonable probability of serious self-mutilation unless adequate treatment is given. No, patients spouse is recommended to assist with medication administration to ensure safely taking NOTE: Previous episodes of dangerousness to self, when applicable, may be considered when determining reasonable probability of physical debilitation, suicide, or self-mutilation. Impression\\plan: Patient is cleared from acute psychiatric services. Patient is well known to the ED and has been evaluated by psych multiple times in the past. Historically, patient was diagnosed with Schizophrenia and often becomes non-compliant with medication regimen. At this time, it appears patient is at her baseline as her spouse reports her "talking to people who are not there" has been occurring for over a decade. Spouse notes no safety concerns for patient and does not feel she is suicidal or homicidal. He states she accidentally misused her insulin and he called EMS for medical concerns. Patient does not meet criteria for IVC as she reports no suicidal ideation, plan, and intent. During evaluation, patient maintained eye contact and responded appropriately to questions. She did note some of her medications are poisonous and she began having a conversation out loud as clinician left the room (nobody else was in the room), however behaviors are consistent with her reported baseline. Patient's spouse reports she is compliant with taking her Seroquel and Latuda at this time. Patient and spouse are highly recommended to continue medication management at this time. Spouse is recommended to assist patient with medication compliance to ensure correct dosages are taken at the correct times. Patient is being medically admitted to the hospital, but is cleared from the behavioral health team to return home upon medical clearance. Patient is recommended to continue her outpatient medications as a provider is already established; Dr. Campbell. did mention wanting to get patient back into [facility] for medication management as well. Consulted with Dr. Rodriguez regarding the management and care of patient. ED Physician in agreement with recommendations.
[2020-06-27] MEDS ORDERED: INSULIN LISPRO 100 UNIT/ML 3 ML VIAL SUBCUT ONE (14:00)
[2020-06-27] MEDS ORDERED: INSULIN GLARGINE,HUM.REC.ANLOG 1,000 UNIT/10 ML VIAL SUBCUT SCH (22:00)
[2020-06-27] MEDS ORDERED: QUETIAPINE FUMARATE 400 MG PO SCH (22:00)
[2020-06-27] MEDS: QUETIAPINE FUMARATE 100 MG TABLET PO SCH (22:02)
[2020-06-28] MEDS: INSULIN LISPRO 100 UNIT/ML 3 ML VIAL SUBCUT SCH ×4 (02:08→14:51)
[2020-06-28 07:43] LABS: HEMATOCRIT 35.1 % (36.0-47.0); HEMOGLOBIN 11.7 g/dL (12.0-15.5); MEAN CORPUSCULAR HEMOGLOBIN 30.7 pg (27.0-33.4); MEAN CORPUSCULAR HGB CONC 33.2 g/dL (32.0-36.0); MEAN CORPUSCULAR VOLUME 93 fl (80-97); PLATELET COUNT 212 10^3/uL (150-450); RED CELL DISTRIBUTION WIDTH 14.8 % (11.5-14.0); WHITE BLOOD COUNT 3.9 10^3/uL (4.0-10.5)
[2020-06-28 08:00] LABS: ANION GAP 9 (5-19); BLOOD UREA NITROGEN 28 mg/dL (7-20); CALCIUM 9.7 mg/dL (8.4-10.2); CARBON DIOXIDE 22 mmol/L (22-30); CHLORIDE 108 mmol/L (98-107); GLUCOSE 146 mg/dL (75-110); POTASSIUM 4.1 mmol/L (3.6-5.0)
[2020-06-28 09:12] LABS: FREE T3 2.85 pg/mL (2.77-5.27); FREE T4 (FREE THYROXINE) 0.92 ng/dL (0.78-2.19)
[2020-06-28] MEDS ORDERED: LURASIDONE HCL 40 MG TABLET PO SCH (10:00)
[2020-06-28] MEDS ORDERED: LURASIDONE HCL 80 MG PO SCH (10:00)
[2020-06-28] MEDS: DOCUSATE SODIUM 100 MG CAPSULE PO SCH (10:08)
[2020-06-28] MEDS: AMANTADINE HCL 100 MG CAPSULE PO SCH ×2 (10:08→14:51)
[2020-06-28] MEDS: QUETIAPINE FUMARATE 100 MG TABLET PO SCH (10:08)
[2020-06-28] MEDS: ENOXAPARIN SODIUM INJ 40 MG/0.4 ML DISP.SYRIN SUBCUT SCH (10:09)
[2020-06-28 14:45] VITALS: BP 121/84
--- NOTE | 2020-06-28 19:18 | PDOC DISCHARGE SUMMARY ---
Impression - Admit/DC Date/PCP Admission Date/Primary Care Provider: 06/27/20 08:09 MARGIE MUNOZ MD Discharge Date: 06/28/20 - Discharge Diagnosis (1) SIRS (systemic inflammatory response syndrome) Is this a current diagnosis for this admission?: Yes (2) Hypoglycemia Is this a current diagnosis for this admission?: Yes (3) Hypotension Is this a current diagnosis for this admission?: Yes (4) Hypothermia Is this a current diagnosis for this admission?: Yes (5) Hypertension Is this a current diagnosis for this admission?: Yes (6) Schizophrenia Is this a current diagnosis for this admission?: Yes (7) Altered mental status Is this a current diagnosis for this admission?: Yes - Additional Information Resuscitation Status: Full Code Discharge Diet: Diabetic Discharge Activity: Activity As Tolerated, Balance Activity w/Rest Referrals: MARGIE MUNOZ MD [Primary Care Provider] - 07/04/20 11:00 am (follow up within 1 week) Home Medications: Amantadine HCl [Amantadine] 100 mg PO TID 03/19/19 Quetiapine Fumarate [Seroquel Xr] 400 mg PO QHS 03/19/19 Insulin Aspart [Novolog] 0 unit SUBCUT .SLD SCALE 04/20/20 Losartan Potassium [Cozaar 50 mg Tablet] 50 mg PO DAILY 04/20/20 Allopurinol [Zyloprim 100 mg Tablet] 200 mg PO DAILY 06/27/20 Colchicine 0.6 mg PO BID 06/27/20 Lurasidone HCl [Latuda] 80 mg PO DAILY 06/27/20 Acetaminophen [Tylenol 325 mg Tablet] 650 mg PO Q4HP PRN tablet 06/28/20 History of Present Illiness History of Present Illness: VENKAT GRAY is a 65 year old female with a past medical history of bipolar, schizophrenia, hypertension, DM 2, and medication noncompliance who presented to the emergency department today via EMS for altered mental status from baseline, hypoglycemia, hypotension, and hypothermia. Per patient's , she took 40 units of NovoLog last night for correction of hyperglycemia. She does not utilize long-acting insulins. Upon EMS arrival, her blood sugar was noted to be in the 40s. She was provided D10 and fluid boluses. Upon arrival to the emergency department, her vital signs were, initially, unremarkable other than a persistently low temperature (verified rectally is 93.9). CBC, VBG, chemistry, urinalysis, and UDS were essentially unremarkable. Only notable findings were mild hypokalemia (3.1) and a mild BRANDON (CR 1.35/BUN 26). EKG showed sinus rhythm. Chest x-ray was unremarkable. The provider was preparing to discharge the patient when she again became hypotensive with blood pressures 58/39. Therefore, she is referred to the hospitalist service for further evaluation and management of the above-stated complaints and findings. Hospital Course Hospital Course: (1) SIRS (systemic inflammatory response syndrome) Resolved. Likely secondary to insulin over dose. Patient presented with altered mental status from baseline, hypothermia, hypotension, and hypoglycemia. Denies recent symptoms of illness/infectious process. Evaluation in the emergency department was unremarkable other than persistent hypothermia and recurrent hypotension. Chest x-ray is benign Urinalysis negative. Blood cultures at 24 hours No skin breakdown. No clear source of an infectious process to explain her laboratory and vital sign changes. Patient was admitted to medical floor on continuous cardiac telemetry. Provided generous IV fluids. No indication for antibiotic therapy. (2) Hypoglycemia Likely secondary to medication misuse and accidental NovoLog overdose. reported that patients blood sugar read HIGH and so she took 40 units of NovoLog at 9pm followed by an additional 50 units at 11:30 pm. Both patient and strongly deny any depression, SI/HI, or intentional self harm. A1C 10.8% She was monitored with Accu-Cheks every 4 hours with sliding scale Humalog and hypoglycemia protocol in place. Her blood sugars remained adequate and she did not require further hypoglycemic interventions. Long discussion had with the patient's regarding the need for him to manage all insulin therapy. Strongly advised the use of a lock box in order to maintain control of the patient's insulin. Patient's states that this has been tried in the past but, unfortunately, once the medication becomes locked up, the patient has delusions about poisoning. This was discussed in further detail with the patient's PCP who confirms longstanding history of delusions regarding potions and poisons. She states that she has educated the patient's family members, on multiple occasions, on the need to lock the medications. She states that she has also made APS referrals in the past. At this time, the PCP believes that she has maximized any hospital benefit as she has returned to her baseline and that her current living situation, while not ideal, has been the norm for quiet some time. PCP advised patient be discharged on current medication regiment. Recommend close outpatient follow up. (3) Hypotension Resolved. Likely secondary to prolonged hypoglycemia. Although patient and denies, there is also the possibility of accidental losartan overdose as they do admit to excessive insulin use and "double dose" of seroquel. Received generous IV fluids. Now hypertensive and have resumed home dose losartan. Findings and recommendations discussed with both and PCP. (4) Hypothermia Resolved; likely secondary to insulin overdose resulting in prolonged hypoglycemia and hypotension. Subclinical hypothyroidism by thyroid panel. Discussed with PCP prior to discharge. Routing outpatient monitoring. (5) Hypertension Labial blood pressures. Discussed w/ PCP; patient with intermittent/poor medication complaince. Well controlled upon resumption of losartan. Discussed w/ patient's importance of him managing medications while at home. Recommend use of a lock box. (6) Schizophrenia Mental Health consultation requested; have cleared for discharge. Recommend she continue her home medication regimen. (7) Altered mental status Resolved; now at baseline per . Head CT was negative for acute findings. She is A&Ox4, though w/ intermittent, frequent, delusions. Physical Exam Vital Signs: Temp Pulse Resp BP Pulse Ox 98.0 F 114 H 15 160/92 H 94 06/28/20 08:30 06/28/20 14:00 06/28/20 09:38 06/28/20 08:30 06/28/20 09:38 Intake & Output 06/27/20 06/28/20 06/29/20 06:59 06:59 06:59 Intake Total 3120 240 Output Total 800 Balance 2320 240 Weight 68.3 kg 67.1 kg 65.4 kg General appearance: PRESENT: no acute distress, disheveled, well-developed, well-nourished - overweight Head exam: PRESENT: atraumatic, normocephalic Eye exam: PRESENT: conjunctiva pink, EOMI, PERRLA. ABSENT: scleral icterus Mouth exam: PRESENT: moist, tongue midline Teeth exam: PRESENT: poor dentation Respiratory exam: PRESENT: clear to auscultation soy, symmetrical, unlabored. ABSENT: rales, rhonchi, wheezes Cardiovascular exam: PRESENT: RRR. ABSENT: diastolic murmur, rubs, systolic murmur Vascular exam: PRESENT: normal capillary refill GI/Abdominal exam: PRESENT: normal bowel sounds, soft. ABSENT: distended, guarding, mass, organolmegaly, rebound, tenderness Rectal exam: PRESENT: deferred Extremities exam: PRESENT: full ROM. ABSENT: calf tenderness, clubbing, pedal edema Musculoskeletal exam: PRESENT: ambulatory Neurological exam: PRESENT: alert, awake, oriented to person, oriented to place, oriented to time, oriented to situation, CN II-XII grossly intact, other - Technically orientated; intermittent/frequent odd statements and delusions. ABSENT: motor sensory deficit Psychiatric exam: PRESENT: normal mood, unusual affect. ABSENT: homicidal ideation, suicidal ideation Focused psych exam: PRESENT: delusional Skin exam: PRESENT: dry, intact, warm. ABSENT: cyanosis, rash Results Laboratory Results: WBC 3.9 10^3/uL (4.0-10.5) L 06/28/20 06:16 RBC 3.80 10^6/uL (3.72-5.28) 06/28/20 06:16 Hgb 11.7 g/dL (12.0-15.5) L 06/28/20 06:16 Hct 35.1 % (36.0-47.0) L 06/28/20 06:16 MCV 93 fl (80-97) 06/28/20 06:16 MCH 30.7 pg (27.0-33.4) 06/28/20 06:16 MCHC 33.2 g/dL (32.0-36.0) 06/28/20 06:16 RDW 14.8 % (11.5-14.0) H 06/28/20 06:16 Plt Count 212 10^3/uL (150-450) 06/28/20 06:16 Lymph % (Auto) 22.7 % (13-45) 06/27/20 04:19 [place] % (Auto) 7.2 % (3-13) 06/27/20 04:19 Eos % (Auto) 2.0 % (0-6) 06/27/20 04:19 Baso % (Auto) 0.6 % (0-2) 06/27/20 04:19 Absolute Neuts (auto) 3.1 10^3/uL (1.7-8.2) 06/27/20 04:19 Absolute Lymphs (auto) 1.0 10^3/uL (0.5-4.7) 06/27/20 04:19 Absolute Monos (auto) 0.3 10^3/uL (0.1-1.4) 06/27/20 04:19 Absolute Eos (auto) 0.1 10^3/uL (0.0-0.6) 06/27/20 04:19 Absolute Basos (auto) 0.0 10^3/uL (0.0-0.2) 06/27/20 04:19 Seg Neutrophils % 67.5 % (42-78) 06/27/20 04:19 VBG pH 7.31 (7.30-7.42) 06/27/20 05:54 VBG pCO2 50.9 mmHg (35-63) 06/27/20 05:54 VBG HCO3 24.9 mmol/L (20-32) 06/27/20 05:54 VBG Base Excess -2.1 mmol/L 06/27/20 05:54 Sodium 138.9 mmol/L (137-145) 06/28/20 06:16 Potassium 4.1 mmol/L (3.6-5.0) 06/28/20 06:16 Chloride 108 mmol/L (98-107) H 06/28/20 06:16 Carbon Dioxide 22 mmol/L (22-30) 06/28/20 06:16 Anion Gap 9 (5-19) 06/28/20 06:16 BUN 28 mg/dL (7-20) H 06/28/20 06:16 Creatinine 1.18 mg/dL (0.52-1.25) 06/28/20 06:16 Est GFR ( Amer) 55 (>60) L 06/28/20 06:16 Est GFR (MDRD) Non-Af 46 (>60) L 06/28/20 06:16 Glucose 146 mg/dL (75-110) H 06/28/20 06:16 POC Glucose 392 mg/dL (70-110) H 06/28/20 09:54 Hemoglobin A1c % 10.8 % (4.7-6.0) H 06/27/20 04:19 Lactic Acid 2.7 mmol/L (0.7-2.1) H 06/28/20 10:08 Calcium 9.7 mg/dL (8.4-10.2) 06/28/20 06:16 Magnesium 2.1 mg/dL (1.6-2.3) 06/27/20 04:19 Total Bilirubin 0.5 mg/dL (0.2-1.3) 06/27/20 04:19 Direct Bilirubin 0.2 mg/dL (0.0-0.4) 06/27/20 04:19 Neonat Total Bilirubin Not Reportable 06/27/20 04:19 Neonat Direct Bilirubin Not Reportable 06/27/20 04:19 Neonat Indirect Bili Not Reportable 06/27/20 04:19 AST 32 U/L (14-36) 06/27/20 04:19 ALT 28 U/L (<35) 06/27/20 04:19 Alkaline Phosphatase 131 U/L (38-126) H 06/27/20 04:19 Troponin I < 0.012 ng/mL 06/27/20 04:19 Total Protein 7.1 g/dL (6.3-8.2) 06/27/20 04:19 Albumin 3.9 g/dL (3.5-5.0) 06/27/20 04:19 TSH 5.73 uIU/mL (0.47-4.68) H 06/27/20 04:19 Free T4 0.92 ng/dL (0.78-2.19) 06/28/20 06:16 Free T3 pg/mL 2.85 pg/mL (2.77-5.27) 06/28/20 06:16 Urine Color STRAW 06/27/20 06:13 Urine Appearance CLEAR 06/27/20 06:13 Urine pH 6.0 (5.0-9.0) 06/27/20 06:13 Ur Specific [place] 1.011 06/27/20 06:13 Urine Protein NEGATIVE mg/dL (NEGATIVE) 06/27/20 06:13 Urine Glucose (UA) >=500 mg/dL (NEGATIVE) H 06/27/20 06:13 Urine Ketones NEGATIVE mg/dL (NEGATIVE) 06/27/20 06:13 Urine Blood NEGATIVE (NEGATIVE) 06/27/20 06:13 Urine Nitrite NEGATIVE (NEGATIVE) 06/27/20 06:13 Urine Bilirubin NEGATIVE (NEGATIVE) 06/27/20 06:13 Urine Urobilinogen NEGATIVE mg/dL (<2.0) 06/27/20 06:13 Ur Leukocyte Esterase NEGATIVE (NEGATIVE) 06/27/20 06:13 Urine WBC (Auto) 1 /HPF 06/27/20 06:13 Urine RBC (Auto) 0 /HPF 06/27/20 06:13 Squamous Epi Cells Auto <1 /HPF 06/27/20 06:13 Urine Mucus (Auto) RARE /LPF 06/27/20 06:13 Urine Ascorbic Acid NEGATIVE (NEGATIVE) 06/27/20 06:13 Salicylates < 1.0 mg/dL (2.0-20.0) L 06/27/20 04:19 Urine Opiates Screen NEGATIVE 06/27/20 06:13 Urine Methadone Screen NEGATIVE 06/27/20 06:13 Acetaminophen < 10 ug/mL (10-30) L 06/27/20 04:19 Ur Barbiturates Screen NEGATIVE 06/27/20 06:13 Ur Phencyclidine Scrn NEGATIVE 06/27/20 06:13 Ur Amphetamines Screen NEGATIVE 06/27/20 06:13 U Benzodiazepines Scrn NEGATIVE 06/27/20 06:13 Urine Cocaine Screen NEGATIVE 06/27/20 06:13 U Marijuana (THC) Screen NEGATIVE 06/27/20 06:13 Serum Alcohol < 10 mg/dL (NONE DETECTED) 06/27/20 04:19 06/27/20 04:19 Troponin I < 0.012 Impressions: Head CT 06/27/20 00:00 IMPRESSION: CHRONIC CHANGES OF ATROPHY AND MICROVASCULAR ISCHEMIA. NO ACUTE PROCESS. EVIDENCE OF ACUTE STROKE: NO. Chest X-Ray 06/27/20 03:56 IMPRESSION: No acute cardiopulmonary abnormality copyright 2010 [employer]- All Rights Reserved Plan Plan of Treatment: Patient is discharged home, in stable condition, into the care of her . She is instructed to follow up with her primary care provider within 1 week. She may benefit from a home health nurse or home psychiatric nurse/team [such as the [facility] ([facility]) team]. Recommend discussing these options with primary care provider at follow up appointment. STRONGLY recommend that ALL medications are kept in a locked box and dosed by patient's spouse, especially insulin. Discussed this in detail with the patient's . Take medications only as prescribed. Eat a consistent carb diet. Return to the emergency department, as needed, for concerning symptoms. Time Spent: Greater than 30 Minutes Stroke Is this a Stroke Patient?: No Acute Heart Failure Is this a Heart Failure Patient?: No
== END 2020-06-28 15:14 | disposition home or self-care (01) ==
LOC: ER 03:24 → EH 08:09 → 5 13:00
PROVIDERS: ADMIT Hospitalist; ATTEND Registered Nurse
DX: E11.649 Type 2 diabetes mellitus with hypoglycemia without coma (principal); R65.10 Systemic inflammatory response syndrome (SIRS) of non-infectious origin without acute organ dysfunction; I95.9 Hypotension, unspecified; T68.XXXA Hypothermia, initial encounter; X58.XXXA Exposure to other specified factors, initial encounter; R41.82 Altered mental status, unspecified; E87.6 Hypokalemia; F20.9 Schizophrenia, unspecified; Z91.14 Patient's other noncompliance with medication regimen; I10 Essential (primary) hypertension; N17.9 Acute kidney failure, unspecified; F31.9 Bipolar disorder, unspecified; Z79.4 Long term (current) use of insulin; Z79.899 Other long term (current) drug therapy
CPT/HCPCS: 93005; 99285; 96360; 36415 ×2; 87040; 84439; 82962 ×2; 80307 ×4; 83605 ×2; 83735; 84443; 85025; 85027; 80048; 80053; 81001; 84484; 84481; 83036; 82803; 71045; 70450; 93010; G0378 ×3; A9270 ×9; J1650 ×2; J7030; J1815; J3490